=== PATIENT | male | born 1985 | race Hispanic/Latino ===

== ENCOUNTER 2021-02-27 12:34 | Emergency (ER) | payer MEDICAID ==
[~2021-02-27] VITALS: Ht 170.2 cm; Wt 118.4 kg
[2021-02-27] MEDS ORDERED: IBUPROFEN 800 MG TAB PO ONE (13:30)
[2021-02-27] MEDS ORDERED: 0.9%NACL 1000ML 1,000 ML IV ONE (13:30)
[2021-02-27] MEDS ORDERED: ACETAMINOPHEN 500 MG TABLET PO ONE (13:30)
[2021-02-27 13:40] LABS: APPEARANCE,URINE Clear (CLEAR); BILIRUBIN,URINE Negative (NEGATIVE); COLOR,URINE Yellow (YELLOW); GLUCOSE, URINE (UA) Negative (NEGATIVE); KETONES,URINE Negative (NEGATIVE); LEUKOCYTE ESTERASE ,URINE Negative (NEGATIVE); NITRATE,URINE Negative (NEGATIVE); OCCULT BLOOD,URINE Large (NEGATIVE); PROTEIN,URINE POS 2+ mg/dL (NEGATIVE); UROBILINOGEN,URINE 0.2 mg/dL (0.2-1.0)
[2021-02-27 13:51] VITALS: BP 155/99
[2021-02-27 13:51] LABS: BACTERIA,URINE Rare /HPF (None Seen); SQUAMOUS EPITHELIAL CELL,UR Rare /HPF (0-2); WBC,URINE 0-1 /HPF (0-1)
[2021-02-27 13:53] LABS: BASOPHILS % (AUTO) 0.5 % (0.0-5.0); EOSINOPHILS % (AUTO) 2.1 % (0.0-8.0); HEMATOCRIT 48.4 % (42-54); LYMPHOCYTES % (AUTO) 10.1 % (21.0-51.0); MEAN CORPUSCULAR HEMOGLOBIN 32.1 pg (27.0-33.0); MEAN CORPUSCULAR HGB CONC 34.5 g/dL (32.0-36.0); MEAN CORPUSCULAR VOLUME 92.9 fL (79-99); MONOCYTES % (AUTO) 11.6 % (3.0-13.0); NEUTROPHILS % (AUTO) 75.3 % (40.0-77.0); PLATELET COUNT (AUTO) 199 K/uL (130-400); RED BLOOD CELL COUNT(AUTO) 5.21 MIL/uL (4.50-6.20); RED CELL DISTRIBUTION WIDTH 12.3 % (11.0-15.5); WHITE BLOOD COUNT (AUTO) 7.8 K/uL (4.8-10.8)
[2021-02-27 14:12] LABS: ALBUMIN 4.2 g/dL (3.5-5.0); BILIRUBIN,TOTAL 0.6 mg/dL (0.2-1.0); CREATININE 0.8 mg/dL (0.5-1.5); CRP QUANTITATIVE 8.1 mg/L (0.00-9.0); TOTAL PROTEIN, SERUM 8.5 g/dL (6.0-8.3)
[2021-02-27] MEDS ORDERED: ACET-2247 PO (14:39)
[2021-02-27] MEDS ORDERED: IBUP-1552 PO (14:39)
== END 2021-02-27 15:02 | disposition home or self-care (01) ==
LOC: EDH 12:34
DX: U07.1 COVID-19 (principal); E86.0 Dehydration; I10 Essential (primary) hypertension; E66.9 Obesity, unspecified; Z68.41 Body mass index [BMI] 40.0-44.9, adult; Z79.1 Long term (current) use of non-steroidal anti-inflammatories (NSAID)
CPT/HCPCS: 36415; 71045; 80053; 81001; 85025; 86140; 87635; 87804 ×2; 96360; 99284; C9803; J7030

== ENCOUNTER 2024-06-26 20:47 | Inpatient (IN) | payer MEDICAID ==
[~2024-06-26] VITALS: Ht 167.6 cm; Wt 120.7 kg
[~2024-06-26 20:47] MED LIST: ACET-2247 PO; IBUP-1552 PO
--- NOTE | 2024-06-26 20:57 | ERN ---
General Chief Complaint: Multiple Complaints Stated Complaint: HIGH BP Time Seen by MD: 20:50 Time Seen by Midlevel: 20:55 Source: patient History of Present Illness Initial Comments The patient is a morbidly obese 38-year-old male with a past medical history of hypertension presenting to the emergency department for evaluation of flu-like symptoms that started earlier today. Son-in-law is sick with similar symptoms. On arrival with the patient was found febrile, tachycardic, and hypertensive. He does report a pressure-like feeling to the back of his head. He denies any vision changes, focal weakness, nausea, vomiting, or any other symptoms at this time. Patient does report having a history of hypertension and reports taking Cardizem 180 mg once a day. He does report taking the dose in the morning. Repeated the dose prior to arrival when he saw his blood pressure was over 200 systolic. Allergies: Coded Allergies: No Known Allergies (Unverified Allergy, Unknown, 02/27/21) Home Meds Active Scripts Acetaminophen (Tylenol) 325 Mg Tablet, 975 MG PO a4h, #100 TAB Prov:JAIME NAVARRETE 02/27/21 Ibuprofen (Ibu) 400 Mg Tablet, 800 MG PO TID, #60 TAB Prov:JAIME NAVARRETE 02/27/21 Past Medical History Past Medical History: Hypertension Medical History Other: Obesity Past Surgical History: None ROS Dictation CONSTITUTIONAL: Negative except for HPI HEAD/FACE: Negative except for HPI EENT: Negative except for HPI RESPIRATORY: Negative except for HPI GASTROINTESTINAL/ABDOMINAL: Negative except for HPI GENITOURINARY: Negative except for HPI MUSCULOSKELETAL: Negative except for HPI INTEGUMENTARY: Negative except for HPI NEUROLOGICAL/PSYCH: Negative except for HPI HEMATOLOGIC/LYMPHATIC: Negative except for HPI All Systems Negative, Except as noted above. 13 point review of systems assessed and all negative except for above. Physical Exam Physical Exam Dictation Vital Signs reviewed General Appearance: Alert, oriented x 3, morbidly obese, anxious appearing, diaphoretic, febrile Head and Face: non-traumatic. Eyes: PERRL, pink conjunctivas, eyelid no trauma, anterior chamber with arcus senilis. Ears: Pinnas intact and no signs of trauma or erythema ear canals clear and no discharge TM no erythema Nose: No discharge, no bleeding. Oropharynx: Mouth normal, tongue pink, pharynx clear,no erythema, tonsils no exudates, no abscesses noted, mucous membrane moist Neck: Supple, non-tender, no thyromegaly, no masses, no JVD, no bruits Breast:Deferred Chest:No tenderness, no crepitus, no paradoxical movement, no retractions Lungs:Clear, well-ventilated, symmetric, no rales, no wheezing, no rhonchi, no stridor, good breath sounds bilaterally Heart: Tachycardic, regular rhythm, no murmur, no gallops Vascular: no peripheral edema, Abdomen: Soft, positive bowel sounds, nondistended, no guarding, nontender, no rebound, no masses no hepatomegaly, no splenomegaly, no Eng's sign, no hernias. Rectal: Deferred Genital: Deferred Neurological: Normal speech, motor function intact, sensory function intact Musculoskeletal: Neck nontender, full range of motion, back nontender, full range of motion, Extremities: nontender, full range of motion Skin: Color pink, dry, no turgor, no rash, no lacerations, no abrasions, no contusions. Lymphatic: Deferred Results Laboratory and Microbiology Lab and Micro Result Laboratory Tests Test 06/26/24 20:56 06/26/24 20:59 06/26/24 21:19 06/26/24 21:42 White Blood Count 9.0 K/uL (4.8-10.8) Red Blood Count 5.00 MIL/uL (4.50-6.20) Hemoglobin 16.7 g/dL (14.0-18.0) Hematocrit 47.2 % (42-54) Mean Corpuscular Volume 94.4 fL (79-99) Mean Corpuscular Hemoglobin 33.4 pg (27.0-33.0) H Mean Corpuscular Hemoglobin Concent 35.4 g/dL (32.0-36.0) Red Cell Distribution Width 12.2 % (11.0-15.5) Platelet Count 232 K/uL (130-400) Mean Platelet Volume 11.3 fL (7.5-10.5) H Immature Granulocyte % (Auto) 0.6 % (0-1) Neutrophils (%) (Auto) 83.2 % (40.0-77.0) H Lymphocytes (%) (Auto) 5.4 % (21.0-51.0) L Monocytes (%) (Auto) 10.3 % (3.0-13.0) Eosinophils (%) (Auto) 0.1 % (0.0-8.0) Basophils (%) (Auto) 0.4 % (0.0-5.0) Neutrophils # (Auto) 7.5 K/uL (1.8-7.7) Lymphocytes # (Auto) 0.5 K/uL (1.0-4.8) L Monocytes # (Auto) 0.9 K/uL (0.1-1.0) Eosinophils # (Auto) 0.01 K/uL (0.00-0.70) Basophils # (Auto) 0.04 K/uL (0.00-0.20) Absolute Immature Granulocyte (auto 0.05 K/uL (0-1) Nucleated Red Blood Cells 0.0 % (0.0-0.19) White Cell Morphology Comment See comments Sodium Level 138 mmol/L (136-145) Potassium Level 3.9 mmol/L (3.5-5.1) Chloride Level 101 mmol/L (101-111) Carbon Dioxide Level 29 mmol/L (21-32) Blood Urea Nitrogen 8 mg/dL (7-18) Creatinine 1.0 mg/dL (0.5-1.3) Glomerular Filtration Rate Calc 99 mL/min (>90) Random Glucose 194 mg/dL (70-105) H Lactic Acid Level 3.0 mmol/L (0.8-2.5) H Total Calcium 9.2 mg/dL (8.5-10.1) Total Creatine Kinase 183 U/L (21-232) Troponin I High Sensitivity 18.5 ng/L (4-75) B-Type Natriuretic Peptide 49 pg/mL (0-100) Procalcitonin 0.05 ng/mL (0.05-0.5) Influenza Type A Antigen Negative For Type A Influenza Type B Antigen Negative For Type B SARS-CoV-2 Antigen (Rapid) PRESUMPTIVE NEGATIVE Group A Streptococcus Rapid negative (NEGATIVE) Urine Color LIGHT-YELLOW (YELLOW) Urine Appearance CLEAR (CLEAR) Urine pH 7.0 (5.0-8.0) Urine Specific [place] 1.008 (1.001-1.031) Urine Protein 200 mg/dL (NEGATIVE) H Urine Glucose (UA) NEGATIVE mg/dL (NEGATIVE) Urine Ketones NEGATIVE mg/dL (NEGATIVE) Urine Occult Blood LARGE (NEGATIVE) H Urine Nitrate NEGATIVE (NEGATIVE) Urine Bilirubin NEGATIVE mg/dL (NEGATIVE) Urine Urobilinogen 0.2 mg/dL (0.2-1.0) Urine Leukocyte Esterase NEGATIVE [place]/uL Urine RBC 51-100 /HPF (0-1) H Urine WBC 2-5 /HPF (0-1) H Urine Other Crystals (Auto) 3 /HPF (None Seen) Urine Bacteria None /HPF (None Seen) Ammonia 21 umol/L (11-32) Test 06/26/24 22:28 Blood Gas Specimen Type Arterial Arterial Blood pH 7.471 (7.350-7.450) Arterial Blood Partial Pressure CO2 31 mmHg (35-48) L Arterial Blood Partial Pressure O2 74.7 mmHg (83.0-108.0) L Arterial Blood HCO3 22.3 mmol/L (21.0-28.0) Arterial Blood Oxygen Saturation 95.9 % (94.0-98.0) Arterial Blood Base Excess -0.3 mmol/L (-2.0-3.0) Blood Gas Temperature 37.0 CELSIUS (35.5-37.0) Blood Gas Flow-by 2.00 L/min (0.00-15.00) Blood Gas Vent Mode 2LNC (ROOM AIR) FiO2 28.0 % Blood Gas Specimen Comment RR RN REASON: abnormal x ray ORDERING PHYSICIAN: LINA MACDONALD PROCEDURE: CHEST W - CT CHEST W/CONTRAST CT CHEST W/CONTRAST HISTORY: Abnormal x-ray COMPARISON: None TECHNIQUE: Multiple sequential axial images of the chest were obtained from the thoracic inlet through upper abdomen. Patient was given 50 cc of Omnipaque through intravenous route. FINDINGS: Mild bilateral pulmonary infiltrates are seen with interstitial fibrosis No pleural effusion or pericardial effusion is seen. There is no evidence of pneumothorax. There are normal size mediastinal and hilar lymph nodes. The heart is not enlarged. Degenerative changes of the thoracolumbar spine are present. There is no evidence of adrenal nodule. IMPRESSION: 1. Bilateral pulmonary infiltrates with interstitial fibrosis. CT was performed with one or more following dose reduction techniques: automated exposure control, adjustment of the mA and kv according to patient's size, or use of a iterative reconstruction technique. REASON: hypertensive urgency ORDERING PHYSICIAN: LINA MACDONALD PROCEDURE: HEAD WO - CT HEAD/BRAIN W/O CONTRAST CT HEAD/BRAIN W/O CONTRAST HISTORY: Hypertensive urgency COMPARISON: None TECHNIQUE: Multiple sequential axial images of the head were obtained from the base of the skull through vertex. Patient was not given contrast through intravenous route. FINDINGS: The ventricles and extraventricular CSF spaces are dilated consistent with cerebral atrophy. Nonspecific white matter changes seen. There is no midline shift, mass effect or herniation. No acute intracranial bleed is seen. Visualized portion of the paranasal sinuses are grossly within normal limits. There are bilateral choroid plexus calcifications. IMPRESSION: 1. No acute intracranial bleed is seen. CT was performed with one or more following dose reduction techniques: automated exposure control, adjustment of the mA and kv according to patient's size, or use of a iterative reconstruction technique. REASON: palpitations ORDERING PHYSICIAN: LINA MACDONALD PROCEDURE: CXR1VW - CHEST 1VW CHEST 1VW HISTORY: Palpitation COMPARISON: 02/27/2021 FINDINGS: A frontal projection of the chest was obtained. Mild bilateral pulmonary infiltrates are seen may be related to mild pulmonary vascular congestion with possible superimposed pneumonitis. The heart is borderline enlarged. Degenerative changes are seen. No evidence of aortic calcification is seen. IMPRESSION: 1. Mild bilateral pulmonary infiltrates are seen may be related to mild pulmonary vascular congestion with possible superimposed pneumonitis. Labs Reviewed?: Yes MDM MDM: The patient is a 38-year-old male with a history of hypertension on Car dizem who reports to the emergency department with complaints of occipital headache and elevated blood pressure. Patient also reported upper respiratory symptoms. Reports family at home sick with similar symptoms. Denies any chest pain or shortness of breath, denies any abdominal pain, nausea or vomiting. On arrival to ER patient was febrile and tachycardic. Hypoxic on room air. CBC showed no leukocytosis, no anemia, chemistry showed no electrolyte imbalance, lactic acid of 3.0, negative troponin, negative procalcitonin, urinalysis with no leukocyte esterase or nitrites. Serology negative. Blood gas revealed a O2 of 74. Patient placed on oxygen. CT head unremarkable. CT chest showed infiltrates. Patient will be admitted for further evaluation and treatment. Differential diagnosis: Pneumonia, sepsis, upper respiratory infection, dehydration Comorbidities: Hypertension Tests considered and not ordered secondary to shared decision making include: none Previous outside records reviewed: none Risk of complication and/or morbidity or mortality of patient management: The patient meets criteria for admission. Need for emergency major/minor surgery: No There are no social concerns with this patient. I independently interpreted the tests I ordered (labs, urinalysis, etc.). I discussed the case with the hospitalist for admission. Hector BROWN who accepts admission I discussed the case with the following specialists: none. Historian: pateint. I independently interpreted imaging studies and EKGs that I ordered (US, CT, XR, EKG, etc.). External chart review: none. Medical management and examination interpretation discussions were had by me with other qualified healthcare professionals as indicated for the patient's care. ED Course Orders Procedure Category Date Status Time Iv Insertion CPOE 06/26/24 Transmitted 20:51 Pulse Ox(Continuous) RT 06/26/24 Transmitted 20:51 Vital Signs Per CPOE 06/26/24 Transmitted Routine 20:51 12 Lead Ekg Tracing- EKG 06/26/24 Complete Technical 20:51 Cbc With Differential LAB 06/26/24 Complete 20:51 Blood Cult MAHSA 06/26/24 In Process 20:51 Urinalysis Profile LAB 06/26/24 Complete 20:51 Culture Urine MAHSA 06/26/24 In Process 20:51 Lactic Acid LAB 06/26/24 Complete 20:51 Basic Metabolic Panel LAB 06/26/24 Complete 20:51 Covid19 (Sars Antigen LAB 06/26/24 Complete Rapid) 20:51 Influenza Type A & B, LAB 06/26/24 Complete Rapid 20:51 Rapid (Group A Strep) LAB 06/26/24 Complete 20:51 Chest 1vw RAD 06/26/24 Resulted 20:54 Acetaminophen 500mg PHA 06/26/24 Complete Tab (Tylenol 500mg T 21:00 0.9%Nacl 1000ml (Ns PHA 06/26/24 Complete 1000ml) 21:00 Cardiac Panel LAB 06/26/24 Complete 20:56 Ipratropium 0.5 PHA 06/26/24 Complete Mg/2.5 Ml Inh 22:00 Ammonia LAB 06/26/24 Complete 21:33 Ct Head/Brain W/O CT 06/26/24 Resulted Contrast 21:33 Arterial Blood Gas RT 06/26/24 Transmitted 21:33 Ceftriaxone 2gm Vial PHA 06/26/24 Complete (Rocephin 2gm Inj) 22:00 Methylprednisolone PHA 06/26/24 Complete Succ 125mg (Solu-Medr 22:00 Ct Chest W/Contrast CT 06/26/24 Resulted 21:48 Iohexol (Omnipaque) PHA 06/26/24 Complete 21:55 Azithromycin 500mg+Ns PHA 06/26/24 In Process 250ml (Azithromyci 22:00 Arterial Blood Gas LAB 06/26/24 Complete 22:28 B-Type Natriuretic LAB 06/26/24 Complete Peptide 23:12 Admit Orders ADM 06/26/24 Transmitted 23:13 Consistent Carb DIET 06/27/24 Transmitted Breakfast Basic Metabolic Panel LAB 06/27/24 In Process 04:00 Cbc With Differential LAB 06/27/24 In Process 04:00 Magnesium LAB 06/27/24 In Process 04:00 Phosphorus LAB 06/27/24 In Process 04:00 Urinalysis Profile LAB 06/26/24 In Process 23:13 Procalcitonin LAB 06/26/24 Complete 23:13 Lactic Acid LAB 06/27/24 In Process 04:00 Activity: Ad Andra CPOE 06/26/24 Transmitted 23:13 Apply Knee High Teds CPOE 06/26/24 Transmitted 23:13 Apply Scds CPOE 06/26/24 Transmitted 23:13 Condition: CPOE 06/26/24 Transmitted 23:13 Oxygen By Nc/Pulse Ox CPOE 06/26/24 Transmitted 23:13 Telemetry Monitoring CPOE 06/26/24 Transmitted 23:13 Vital Signs(Adult CPOE 06/26/24 Transmitted Hospitalist) 23:13 Nurse To Enter Home CPOE 06/26/24 Transmitted Medication 23:13 Lactated Ringers PHA 06/26/24 In Process 1000ml (Lactated 23:30 Acetaminophen 325 Tab PHA 06/26/24 In Process (Tylenol 325mg Tab 23:30 Enoxaparin Sodium 40 PHA 06/27/24 In Process Mg/0.4 Ml (Lovenox) 09:00 Famotidine 20mg Tab PHA 06/27/24 In Process (Pepcid 20mg Tab) 09:00 Hydralazine 20mg Inj PHA 06/26/24 In Process (Apresoline 20mg In 23:30 Morphine 4mg Syg PHA 06/26/24 In Process (Morphine 4mg Syg) 23:30 Ondansetron 4mg Inj PHA 06/26/24 In Process (Zofran 4mg Inj) 23:30 Lactated Ringers PHA 06/26/24 In Process 1000ml (Lactated 23:30 Respiratory Cult MAHSA 06/26/24 Logged W/Gram Stain 23:19 Ipratropium/Albuterol PHA 06/27/24 In Process Neb (Duoneb) 00:00 Guaifenesin Sug-Ag PHA 06/26/24 In Process 100 Mg/5ml (Robituss 23:30 Zosyn 3.375gm+Ns 50ml PHA 06/27/24 In Process (Zosyn 3.375gm+Ns 05:00 Sodium Chloride 3% PHA 06/26/24 Complete Inh (Sodium Chloride 23:32 Home Cpap/Settings CPOE 06/26/24 Transmitted 23:56 Current Medications Medications (Trade) Dose Ordered Sig/Jocelynn Route PRN Reason Start Time Stop Time Status Last Admin Dose Admin Acetaminophen (TYLenol 325MG TAB) 650 mg Q6H PRN PO TEMPERATURE GREATER THAN 101.5 06/26/24 23:30 07/26/24 23:29 Acetaminophen (TYLenol 500MG TAB) 1,000 mg ONCE ONCE PO 06/26/24 21:00 06/26/24 21:01 DC 06/26/24 21:26 Albuterol (DUOneb) 1 UDVIAL [id number] IH 06/27/24 00:00 07/27/24 00:00 06/26/24 23:36 Azithromycin 250 ml @ 250 mls/hr Q24H IVPB 06/26/24 22:00 07/06/24 21:59 06/26/24 22:11 Ceftriaxone Sodium (Rocephin 2gm Inj) 2 gm ONCE ONCE IVPB 06/26/24 22:00 06/26/24 22:01 DC 06/26/24 21:39 Enoxaparin Sodium (Lovenox) 40 mg DAILY SQ 06/27/24 09:00 07/27/24 08:59 Famotidine (Pepcid 20mg Tab) 20 mg DAILY PO 06/27/24 09:00 07/27/24 08:59 Guaifenesin (RobiTUSSin SUGAR-FREE 100 MG/ 5 ML UDCUP) 400 mg Q4H PRN PO cough 06/26/24 23:30 07/26/24 23:29 Hydralazine HCl (APRESOLine 20MG INJ) 10 mg Q6H PRN IV For:SBP above 160;DBP above 90 06/26/24 23:30 07/26/24 23:29 Iohexol (Omnipaque) 50 ml STK-MED ONCE IV 06/26/24 21:55 06/26/24 21:55 DC Ipratropium [place] (AtrovENT UD) 0.5 MG ONCE ONCE IH 06/26/24 22:00 06/26/24 22:01 DC 06/26/24 22:33 Lactated Ringer's 1,000 ml @ 125 mls/hr Q8H IV 06/26/24 23:30 07/26/24 23:29 Lactated Ringer's 3,129 ml @ 1,043 mls/hr ONCE ONCE IV 06/26/24 23:30 06/27/24 02:29 Methylprednisolone Sodium Succinate (Solu-medROL 125MG) 125 mg ONCE ONCE IVP 06/26/24 22:00 06/26/24 22:01 DC 06/26/24 22:11 Morphine Sulfate (morPHINE 4MG SYG) 4 mg Q4H PRN IVP SEVERE PAIN (7-10) 06/26/24 23:30 07/03/24 23:29 Ondansetron HCl (zoFRAN 4MG INJ) 4 mg Q6H PRN IV NAUSEA/VOMITING 06/26/24 23:30 07/26/24 23:29 Piperacillin Sod/ Tazobactam Sod (Zosyn 3.375gm+NS 50ml) 3.375 gm Q8H IV 06/27/24 05:00 07/07/24 04:59 Sodium Chloride 1,000 ml @ 0 mls/hr ONCE ONCE IV 06/26/24 21:00 06/26/24 21:01 DC 06/26/24 21:26 Sodium Chloride (Sodium Chloride 3% Inh) 4 ml STK-MED ONCE IH 06/26/24 23:32 06/26/24 23:33 DC 06/26/24 23:36 Vital Signs Date Time Temp Pulse Resp B/P (MAP) Pulse Ox O2 Delivery O2 Flow Rate FiO2 06/26/24 23:43 115 20 06/26/24 23:19 100.9 117 20 165/105 94 Nasal Cannula* 3 32 06/26/24 22:37 117 20 170/104 95 Nasal Cannula* 3 32 06/26/24 22:35 121 06/26/24 22:31 121 18 Nasal Cannula 2.0 28 06/26/24 21:46 95 Nasal Cannula* 2 28 06/26/24 21:43 120 20 175/106 92 Room Air* 0 21 06/26/24 21:26 102.7 06/26/24 20:49 102.7 132 20 191/119 95 Room Air DX & DISP Disposition: Inpatient Decision to Admit Date: June 26, 2024 Decision to Admit Time: 23:13 Departure Impression: Primary Impression: Pneumonia Additional Impressions: Sepsis, Elevated lactic acid level Condition: Stable Referrals: HILARIO SCHWARZ MD (PCP) I have reviewed the case, and I agree with, Diagnosis and Plan LINA MACDONALD June 26, 2024 20:57 HAKAN KELLEY June 27, 2024 00:11
--- NOTE | 2024-06-26 20:59 | EKG ---
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
[2024-06-26 21:04] LABS: BASOPHILS # (AUTO) 0.04 K/uL (0.00-0.20); BASOPHILS % (AUTO) 0.4 % (0.0-5.0); EOSINOPHILS # (AUTO) 0.01 K/uL (0.00-0.70); EOSINOPHILS % (AUTO) 0.1 % (0.0-8.0); HEMATOCRIT 47.2 % (42-54); IMMATURE GRANULOCYTE ABSOLUTE 0.05 K/uL (0-1); LYMPHOCYTES # (AUTO) 0.5 K/uL (1.0-4.8); LYMPHOCYTES % (AUTO) 5.4 % (21.0-51.0); MEAN CORPUSCULAR HEMOGLOBIN 33.4 pg (27.0-33.0); MEAN CORPUSCULAR HGB CONC 35.4 g/dL (32.0-36.0); MEAN CORPUSCULAR VOLUME 94.4 fL (79-99); MONOCYTES # (AUTO) 0.9 K/uL (0.1-1.0); MONOCYTES % (AUTO) 10.3 % (3.0-13.0); NEUTROPHILS # (AUTO) 7.5 K/uL (1.8-7.7); NEUTROPHILS % (AUTO) 83.2 % (40.0-77.0); PLATELET COUNT (AUTO) 232 K/uL (130-400); RED CELL DISTRIBUTION WIDTH 12.2 % (11.0-15.5)
[2024-06-26 21:17] LABS: RAPID GROUP A STREP negative (NEGATIVE)
[2024-06-26 21:18] LABS: POTASSIUM 3.9 mmol/L (3.5-5.1)
[2024-06-26] MEDS: 0.9%NACL 1000ML 1,000 ML IV ONE (21:26)
[2024-06-26] MEDS: acetaMINOPHEN 500 MG TABLET PO ONE (21:26)
[2024-06-26 21:27] LABS: COVID19 (SARS ANTIGEN RAPID) PRESUMPTIVE NEGATIVE (NEGATIVE); INFLUENZA TYPE A Negative For Type A (NEGATIVE); INFLUENZA TYPE B Negative For Type B (NEGATIVE)
[2024-06-26 21:31] LABS: APPEARANCE,URINE CLEAR (CLEAR); BILIRUBIN,URINE NEGATIVE (NEGATIVE); COLOR,URINE LIGHT-YELLOW (YELLOW); GLUCOSE, URINE (UA) NEGATIVE (NEGATIVE); KETONES,URINE NEGATIVE (NEGATIVE); LEUKOCYTE ESTERASE ,URINE NEGATIVE Leu/uL (NEGATIVE); NITRATE,URINE NEGATIVE (NEGATIVE); OCCULT BLOOD,URINE LARGE (NEGATIVE); PROTEIN,URINE 200 mg/dL (NEGATIVE); UROBILINOGEN,URINE 0.2 mg/dL (0.2-1.0)
[2024-06-26 21:33] LABS: ADD UA MICROSCOPIC YES
[2024-06-26 21:34] LABS: MUCUS,URINE RARE LPF (None Seen); RBC,URINE 51-100 /HPF (0-1); UNCLASSIFIED CRYSTAL 3 /HPF (None Seen)
[2024-06-26] MEDS: CEFTRIAXONE 2GM VIAL IVPB ONE (21:39)
[2024-06-26] MEDS ORDERED: IOHEXOL-350 50ML VIAL IV ONE (21:55)
[2024-06-26] MEDS: Solu-medROL 125MG VIAL IVP ONE (22:11)
[2024-06-26] MEDS: AZITHROMYCIN 500MG+NS 250ML 250 ML IVPB SCH (22:11)
--- NOTE | 2024-06-26 22:13 | HMCIMG ---
CT HEAD/BRAIN W/O CONTRAST HISTORY: Hypertensive urgency COMPARISON: None TECHNIQUE: Multiple sequential axial images of the head were obtained from the base of the skull through vertex. Patient was not given contrast through intravenous route. FINDINGS: The ventricles and extraventricular CSF spaces are dilated consistent with cerebral atrophy. Nonspecific white matter changes seen. There is no midline shift, mass effect or herniation. No acute intracranial bleed is seen. Visualized portion of the paranasal sinuses are grossly within normal limits. There are bilateral choroid plexus calcifications. IMPRESSION: 1. No acute intracranial bleed is seen. CT was performed with one or more following dose reduction techniques: automated exposure control, adjustment of the mA and kv according to patient's size, or use of a iterative reconstruction technique.
--- NOTE | 2024-06-26 22:17 | HMCIMG ---
CHEST 1VW HISTORY: Palpitation COMPARISON: 02/27/2021 FINDINGS: A frontal projection of the chest was obtained. Mild bilateral pulmonary infiltrates are seen may be related to mild pulmonary vascular congestion with possible superimposed pneumonitis. The heart is borderline enlarged. Degenerative changes are seen. No evidence of aortic calcification is seen. IMPRESSION: 1. Mild bilateral pulmonary infiltrates are seen may be related to mild pulmonary vascular congestion with possible superimposed pneumonitis.
--- NOTE | 2024-06-26 22:23 | HMCIMG ---
CT CHEST W/CONTRAST HISTORY: Abnormal x-ray COMPARISON: None TECHNIQUE: Multiple sequential axial images of the chest were obtained from the thoracic inlet through upper abdomen. Patient was given 50 cc of Omnipaque through intravenous route. FINDINGS: Mild bilateral pulmonary infiltrates are seen with interstitial fibrosis No pleural effusion or pericardial effusion is seen. There is no evidence of pneumothorax. There are normal size mediastinal and hilar lymph nodes. The heart is not enlarged. Degenerative changes of the thoracolumbar spine are present. There is no evidence of adrenal nodule. IMPRESSION: 1. Bilateral pulmonary infiltrates with interstitial fibrosis. CT was performed with one or more following dose reduction techniques: automated exposure control, adjustment of the mA and kv according to patient's size, or use of a iterative reconstruction technique.
[2024-06-26 22:29] LABS: ABG BASE EXCESS -0.3 mmol/L (-2.0-3.0); ABG HCO3 22.3 mmol/L (21.0-28.0); ABG OXYGEN SATURATION 95.9 % (94.0-98.0); ABG PCO2 31 mmHg (35-48); ABG PH 7.471 (7.350-7.450); DEVICE COMMENT RR RN; PO2, ARTERIAL BG 74.7 mmHg (83.0-108.0); VENT MODE, BG 2LNC (ROOM AIR)
[2024-06-26 22:31] VITALS: PULSE 121; RESP 18; O2SAT 95
[2024-06-26] MEDS: IpraTROPium 0.5 MG/2.5 ML INH IH ONE (22:33)
[2024-06-26 22:35] VITALS: PULSE 121
[2024-06-26 23:18] VITALS: TEMP 100.9
--- NOTE | 2024-06-26 23:21 | HP ---
History of Present Illness Reason for Visit: hammond History of Present Illness Mr. Dangelo is a 38-year-old male that was seen and examined today on 06/26/2024. Patient is a good historian of personal health Patient states he came to the emergency department with a chief complaint of headache. Onset was today at 9:00 a.m.. Location is occipital. Duration is on and off. Character is described as a dull ache. There was no alleviating factors. There was no aggravating factors. Patient reports associated chills. Today in the emergency department COVID screen is negative, flu is negative, rapid strep antigen testing is negative, CBC is unremarkable, lactic acid is 3.0, urinalysis positive for protein and RBCs 51-100 per high-powered microscopy field, chest x-ray and CT of chest does show bilateral interstitial infiltrates. CT of the head is unremarkable. Emergency room physician recommended that patient be admitted with a diagnosis of pneumonia. Additionally patient had a temperature of 102.7�, heart rate 120, identified source of infection being lungs and lactic acid of 3.0 meeting clinical sepsis criteria. Past Medical History ADDITIONAL PAST MEDICAL HISTORY: [Hypertension, hyperlipidemia] SOCIAL HISTORY: [Negative for smoking, alcohol use, drug use patient lives with the father Frank Dangelo. Patient has good access to health care through his insurance. Patient denies difficulty pain is bills. Patient is unemployed. Patient is typically independent of all his ADLs] SURGICAL HISTORY: [Testicular surgery] Review of Systems General: No Fever; Chills; No Night Sweats, No Fatigue, No Malaise, No Appetite, No Other HEENT: No Head Aches, No Visual Changes, No Eye Pain, No Ear Pain, No Dysphasia, No Sinus Congestion, No Post Nasal Drip, No Sore Throat, No Other Pulmonary: No Dyspnea, No Cough, No Pleuritic Chest Pain, No Other Cardiovascular: No: Chest Pain, Palpitations, Orthopnea, Paroxysmal Noc. Dyspnea, Edema, Lt Headedness, Other Gastrointestinal: No: Nausea, Vomiting, Abdominal Pain, Diarrhea, Constipation, Melena, Hematochezia, Other Genitourinary: No Dysuria, No Frequency, No Incontinence, No Hematuria, No Retention, No Other Musculoskeletal: No: other, neck pain, shoulder pain, arm pain, back pain, hand pain, leg pain, foot pain Skin: No Urticaria, No Rash, No Other Neurological: Other (Headache); No: Weakness, Numbness, Incoordination, Change in speech, Confusion, Seizures Allergies: Coded Allergies: No Known Allergies (Unverified Allergy, Unknown, 02/27/21) Scheduled Acetaminophen (Tylenol), 975 MG PO a4h Diltiazem HCl (Diltiazem 24Hr Cd), 1 CAP PO DAILY, (Reported) Ibuprofen (Ibu), 800 MG PO TID Exam Vital Signs Vital Signs Date Time Temp Pulse Resp B/P (MAP) Pulse Ox O2 Delivery O2 Flow Rate FiO2 06/26/24 23:19 100.9 117 20 165/105 94 Nasal Cannula* 3 32 General Appearance: Alert, Oriented X3, Cooperative, mild distress HEENT: Atraumatic, EOMI Respiratory: Other (Bilateral rhonchi) Cardiovascular: Regular rate, Regular rhythm, Normal S1, Normal S2 Abdominal: Normal bowel sounds, Soft, No tenderness, No hepatospenomegaly Extremities: No edema Skin: No significant lesion Neuro: Normal speech, Strength at 5/5 X4 ext, Sensation intact, Cranial nerves 3-12 NL Psych/Mental Status: Mental status NL, Mood NL, Thoughts/Content NL Assessment/Plan ASSESSMENT: [ Sepsis, POA Pneumonia, POA Proteinuria, POA Hyperlactatemia, POA] PLAN: [ Admit patient to medical floor as inpatient status. Place patient on telemetry monitoring. Empiric antibiotic therapy with Zosyn. Fluid resuscitation with lactated Ringer's 30 mL/kg Check procalcitonin, follow up with the results Repeat lactic acid in a.m. Check blood culture, follow up with the results Check respiratory culture, follow up with the results DuoNebs every 6 hours. Supportive treatment with guaifenesin, Tylenol IV fluid maintenance therapy lactated Ringer's at 125 mL/HR GI prophylaxis, famotidine DVT prophylaxis, Lovenox ADVANCED CARE PLANNING 1. Which of the following were discussed? Hospice Care - Yes Therapeutic options - Yes Advance Directives - Yes - patient states he does not have any advance directives in place at this time, however his father can make decisions for him if he becomes unable Other discussions - patient wishes to remain a full code at this time 2. Discussed with who? Patient 3. Voluntary nature of this service was explained to the patient? Yes 4. Amount of time spent - ___16 minutes ____ 5. Reviewed by Physician? (if this service was performed by NPP) Yes This document was generated in part using voice recognition software, occasional wrong word or sound alike substitutions may have occurred due to the inherent limitations of voice recognition software. Read the chart carefully and recog nize using context, where the substitutions have occurred. Although every effort was made to edit the content, postmaster relief and typing errors may occur ADDENDUM: ATTENDING PHYSICIAN ATTESTATION: I have reviewed the midlevel's plan. I have independently seen, reviewed the chart and made my own assessment of the patient. See my addendum for updates to the midlevel's medical plan MD JOANNE Snow [facility] June 26, 2024 23:21 TANYA GREEN MD June 28, 2024 19:37
[2024-06-26] MEDS ORDERED: morPHINE 4 MG SYG IVP PRN (23:30)
[2024-06-26] MEDS ORDERED: ondanSETRON 4MG INJ IV PRN (23:30)
[2024-06-26] MEDS ORDERED: guaiFENesin SUGAR-FREE 100 MG/5 ML UDCUP PO PRN (23:30)
[2024-06-26] MEDS: SODIUM CHLORIDE 3% FOR INHALATION 4 ML/AMP VIAL.NEB IH ONE (23:36)
[2024-06-26] MEDS: IpraTROPium/alBUTERol SULFATE 3 ML SOLUTION IH SCH (23:36)
[2024-06-26 23:43] VITALS: PULSE 115; RESP 20
[2024-06-27] VITALS (18 sets, daily range): BP systolic 160–187; BP diastolic 81–110; PULSE 68–124; RESP 17–30; TEMP 97–100; O2SAT 91–100
[2024-06-27] MEDS: LACTATED RINGERS IV ONE (00:23)
[2024-06-27] MEDS: hydrALAZine 20MG/ML VIAL IV PRN (00:55)
[2024-06-27] MEDS ORDERED: DILT180C88 PO (01:01)
[2024-06-27] MEDS: LACTATED RINGERS 1000ML 1,000 ML IV SCH (03:46)
[2024-06-27] MEDS: ZOSYN 3.375GM +NS 50ML IV SCH (04:21)
[2024-06-27 05:20] LABS: BASOPHILS # (AUTO) 0.02 K/uL (0.00-0.20); BASOPHILS % (AUTO) 0.3 % (0.0-5.0); IMMATURE GRANULOCYTE ABSOLUTE 0.04 K/uL (0-1); LYMPHOCYTES # (AUTO) 0.4 K/uL (1.0-4.8); MEAN CORPUSCULAR HEMOGLOBIN 32.4 pg (27.0-33.0); MEAN CORPUSCULAR HGB CONC 34.6 g/dL (32.0-36.0); MEAN CORPUSCULAR VOLUME 93.9 fL (79-99); MONOCYTES # (AUTO) 0.1 K/uL (0.1-1.0); MONOCYTES % (AUTO) 1.6 % (3.0-13.0); NEUTROPHILS % (AUTO) 92.6 % (40.0-77.0); PLATELET COUNT (AUTO) 201 K/uL (130-400); RED CELL DISTRIBUTION WIDTH 12.5 % (11.0-15.5); WHITE BLOOD COUNT (AUTO) 7.5 K/uL (4.8-10.8)
[2024-06-27 05:43] LABS: MAGNESIUM 1.8 mg/dL (1.80-2.40); PHOSPHORUS 2.2 mg/dL (2.5-4.9); POTASSIUM 3.4 mmol/L (3.5-5.1)
[2024-06-27] MEDS: FAMOTIDINE 20MG TAB PO SCH (08:55)
[2024-06-27] MEDS: LoSARTan 50 MG TABLET PO SCH (08:55)
[2024-06-27] MEDS: dilTIAZem 180MG SR CAP PO SCH (08:55)
[2024-06-27] MEDS: ENOXAPARIN SODIUM 40 MG/0.4 ML SYRINGE SQ SCH (08:58)
[2024-06-27] MEDS: SODIUM CHLORIDE 3% FOR INHALATION 4 ML/AMP VIAL.NEB IH ONE (10:51)
[2024-06-27] MEDS: acetaMINOPHEN 325 MG TAB PO PRN (11:44)
[2024-06-27 11:57] LABS: HIV 1&2 ANTIBODY Non-Reactive (Negative); HIV-1 p24 Antigen Non-Reactive (Negative)
[2024-06-27] MEDS ORDERED: VANCOMYCIN PROTOCOL PER PHARMACY IV SCH (12:00)
[2024-06-27] MEDS: VANCOMYCIN 2GM/500 ML BAG 500 ML IV ONE (14:43)
--- NOTE | 2024-06-27 18:15 | PN ---
[facility] PROGRESS NOTE Date of Service: June 27, 2024 Time of Service: 17:59 SUBJECTIVE: 5/3 seen at bedside, no acute events overnight. Last fever was yesterday with a T-max of a 102.7�, he continues to be tachycardic heart rate ranging from 102 up to 115, he has been hypertensive, losartan and nifedipine have been started. Potassium mildly low at 3.4, creatinine kinase increased to 451, last lactic acid was 3.3 up from 2.2, we will repeat lactic acid at 6:00 p.m.. Culture still pending, we will follow up. We will order Radha typhus panel, start vanc and doxycycline. Chest CT does not show any infiltrates, at bedside patient reports improvement in his headache and neck pain. He was able to move his neck independently without any major neck stiffness, meningitis not likely however if symptoms do not improve and began to worsen we will consider LP REVIEW OF SYSTEMS 12 point review of systems negative unless noted in HPI PHYSICAL EXAM GENERAL APPEARANCE: The patient is awake, alert, and oriented, in no acute cardiopulmonary distress. NEUROLOGICAL: Cranial nerves II-XII grossly intact. Motor is 5/5 in bilateral upper and lower extremities proximal to distal. No sensory deficits. HEENT: Face is symmetric. Pupils are equal and reactive. Extraocular movements are intact. NECK: Supple. No JVD. No thyromegaly. No submental, submandibular, pre- /postauricular, occipital or supraclavicular lymphadenopathy. CHEST: Normal chest expansion. No Telemetry. LUNGS: Absence of any rales, rhonchi or any wheezing. CARDIOVASCULAR: Regular. S1 and S2 normal. No appreciable rubs, murmurs or gallops. ABDOMEN: Soft, nontender, and nondistended. There is no rebound, voluntary guarding, or rigidity. : Deferred. No Isbell. EXTREMITIES: Non-edematous and not cyanotic. No clubbing. Good capillary refill. SKIN: No skin breakdown. Vital Signs (last 8hr) Date Time Temp Pulse Resp B/P (MAP) Pulse Ox O2 Delivery O2 Flow Rate FiO2 06/27/24 16:00 98.4 108 19 165/94 97 Room Air 06/27/24 12:00 98.1 115 20 160/86 92 Room Air 06/27/24 11:20 102 18 06/27/24 11:14 18 N/A Room Air 21 LABS: Laboratory: Test 06/27/24 11:09 06/27/24 05:11 06/26/24 22:28 06/26/24 21:42 Range/Units Lactic Acid Level 3.3 H 0.8-2.5 mmol/L Total Creatine Kinase 451 #*H 21-232 U/L Procalcitonin < 0.05 L 0.05-0.5 ng/mL White Blood Count 7.5 4.8-10.8 K/uL Red Blood Count 4.90 4.50-6.20 MIL/uL Hemoglobin 15.9 14.0-18.0 g/dL Hematocrit 46.0 42-54 % Mean Corpuscular Volume 93.9 79-99 fL Mean Corpuscular Hemoglobin 32.4 27.0-33.0 pg Mean Corpuscular Hemoglobin Concent 34.6 32.0-36.0 g/dL Red Cell Distribution Width 12.5 11.0-15.5 % Platelet Count 201 130-400 K/uL Mean Platelet Volume 11.0 H 7.5-10.5 fL Immature Granulocyte % (Auto) 0.5 0-1 % Neutrophils (%) (Auto) 92.6 H 40.0-77.0 % Lymphocytes (%) (Auto) 5.0 L 21.0-51.0 % Monocytes (%) (Auto) 1.6 L 3.0-13.0 % Eosinophils (%) (Auto) 0.0 0.0-8.0 % Basophils (%) (Auto) 0.3 0.0-5.0 % Neutrophils # (Auto) 7.0 1.8-7.7 K/uL Lymphocytes # (Auto) 0.4 L 1.0-4.8 K/uL Monocytes # (Auto) 0.1 0.1-1.0 K/uL Eosinophils # (Auto) 0.00 0.00-0.70 K/uL Basophils # (Auto) 0.02 0.00-0.20 K/uL Absolute Immature Granulocyte (auto 0.04 0-1 K/uL Nucleated Red Blood Cells 0.0 0.0-0.19 % Sodium Level 137 136-145 mmol/L Potassium Level 3.4 L 3.5-5.1 mmol/L Chloride Level 103 101-111 mmol/L Carbon Dioxide Level 26 21-32 mmol/L Blood Urea Nitrogen 8 7-18 mg/dL Creatinine 1.0 0.5-1.3 mg/dL Glomerular Filtration Rate Calc 99 >90 mL/min Random Glucose 188 H 70-105 mg/dL Total Calcium 9.3 8.5-10.1 mg/dL Phosphorus Level 2.2 L 2.5-4.9 mg/dL Magnesium Level 1.80 1.80-2.40 mg/dL HIV (1&2) Antibody Non-Reactive Negative HIV P24 Antigen, Qualitative Non-Reactive Negative Blood Gas Specimen Type Arterial Arterial Blood pH 7.471 H 7.350-7.450 Arterial Blood Partial Pressure CO2 31 L 35-48 mmHg Arterial Blood Partial Pressure O2 74.7 L 83.0-108.0 mmHg Arterial Blood HCO3 22.3 21.0-28.0 mmol/L Arterial Blood Oxygen Saturation 95.9 94.0-98.0 % Arterial Blood Base Excess -0.3 -2.0-3.0 mmol/L Blood Gas Temperature 37.0 35.5-37.0 CELSIUS Blood Gas Flow-by 2.00 0.00-15.00 L/min Blood Gas Vent Mode 2LNC ROOM AIR FiO2 28.0 % Blood Gas Specimen Comment RR RN Ammonia 21 11-32 umol/L Test 06/26/24 21:19 06/26/24 20:59 06/26/24 20:56 Range/Units Urine Color LIGHT-YELLOW YELLOW Urine Appearance CLEAR CLEAR Urine pH 7.0 5.0-8.0 Urine Specific [place] 1.008 1.001-1.031 Urine Protein 200 H NEGATIVE mg/dL Urine Glucose (UA) NEGATIVE NEGATIVE mg/dL Urine Ketones NEGATIVE NEGATIVE mg/dL Urine Occult Blood LARGE H NEGATIVE Urine Nitrate NEGATIVE NEGATIVE Urine Bilirubin NEGATIVE NEGATIVE mg/dL Urine Urobilinogen 0.2 0.2-1.0 mg/dL Urine Leukocyte Esterase NEGATIVE NEGATIVE Nallely/uL Urine RBC 51-100 H 0-1 /HPF Urine WBC 2-5 H 0-1 /HPF Urine Other Crystals (Auto) 3 None Seen /HPF Urine Bacteria None None Seen /HPF Influenza Type A Antigen Negative For Type A NEGATIVE Influenza Type B Antigen Negative For Type B NEGATIVE SARS-CoV-2 Antigen (Rapid) PRESUMPTIVE NEGATIVE NEGATIVE Group A Streptococcus Rapid negative NEGATIVE White Cell Morphology Comment See comments Troponin I High Sensitivity 18.5 4-75 ng/L B-Type Natriuretic Peptide 49 0-100 pg/mL Current Medications Medications (Trade) Dose Ordered Sig/Jocelynn Route PRN Reason Start Time Stop Time Status Last Admin Dose Admin Acetaminophen (TYLenol 325MG TAB) 650 mg Q6H PRN PO TEMPERATURE GREATER THAN 101.5 06/26/24 23:30 07/26/24 23:29 06/27/24 11:44 650 MG Albuterol (DUOneb) 1 UDVIAL [id number] IH 06/27/24 00:00 07/27/24 00:00 06/27/24 11:17 1 UDVIAL Azithromycin 250 ml @ 250 mls/hr Q24H IVPB 06/26/24 22:00 06/27/24 08:15 DC 06/26/24 22:11 250 MLS/HR Diltiazem HCl (CARDIzem 180MG CD) 180 mg DAILY PO 06/27/24 09:00 07/27/24 08:59 06/27/24 08:55 180 MG Doxycycline Hyclate (Doxycycline Hyclate) 100 mg BID PO 06/27/24 21:00 07/07/24 20:59 Enoxaparin Sodium (Lovenox) 40 mg DAILY SQ 06/27/24 09:00 07/27/24 08:59 06/27/24 08:58 40 MG Famotidine (Pepcid 20mg Tab) 20 mg DAILY PO 06/27/24 09:00 07/27/24 08:59 06/27/24 08:55 20 MG Guaifenesin (RobiTUSSin SUGAR-FREE 100 MG/ 5 ML UDCUP) 400 mg Q4H PRN PO cough 06/26/24 23:30 07/26/24 23:29 Hydralazine HCl (APRESOLine 20MG INJ) 10 mg Q6H PRN IV For:SBP above 160;DBP above 90 06/26/24 23:30 07/26/24 23:29 06/27/24 00:55 10 MG Lactated Ringer's 1,000 ml @ 160 mls/hr Q6H15M IV 06/26/24 23:30 07/26/24 23:29 06/27/24 10:43 160 MLS/HR Losartan Potassium (CozAAR 50 mg TAB) 50 mg BID PO 06/27/24 09:00 07/27/24 08:59 06/27/24 08:55 50 MG Morphine Sulfate (morPHINE 4MG SYG) 4 mg Q4H PRN IVP SEVERE PAIN (7-10) 06/26/24 23:30 07/03/24 23:29 Ondansetron HCl (zoFRAN 4MG INJ) 4 mg Q6H PRN IV NAUSEA/VOMITING 06/26/24 23:30 07/26/24 23:29 Piperacillin Sod/ Tazobactam Sod (Zosyn 3.375gm+NS 50ml) 3.375 gm Q8H IV 06/27/24 05:00 07/07/24 04:59 06/27/24 14:43 3.375 GM Vancomycin HCl 250 ml @ 125 mls/hr Q12H IV 06/28/24 01:00 07/08/24 00:59 Vancomycin HCl (Vancomycin Protocol) 1 each AD IV 06/27/24 12:00 07/11/24 11:59 DIAGNOSTICS / RADIOLOGY: [ ] ASSESSMENT: Sepsis, POA Pneumonia, POA Proteinuria, POA Hypertension, POA Elevated lactic acid, POA PLAN: Continue Zosyn Start Vancomycin protocol Start doxycycline 100mg BID Continue LR @ 160 cc/hr Continue diltiazem 180mg q24h Continue lovenox Disposition: Pending improvement in clinical status TANYA GREEN MD June 27, 2024 18:15
--- NOTE | 2024-06-27 19:30 | NUR ---
DCP: INITIAL ASSESSMENT Patient lives with parents. He has no Home Health but has [facility] X 49 hours a week DME: BPM. Patient needs help with ADLs and doesn't drive. PCP is Dr. Evens Brooks. Pharmacy is [facility] in [place]. Patient voiced no safety concerns regarding returning home and states he has no difficulty with housing or buying food. DCP is home. Addendum: 06/27/24 at 1931 by TRACYE HIDALGO SS Amended: Links added.
[2024-06-27] MEDS: DOXYCYCLINE HYCLATE 100 MG TABLET PO SCH (20:02)
[2024-06-28] VITALS (18 sets, daily range): BP systolic 137–169; BP diastolic 95–111; PULSE 53–124; RESP 18–25; TEMP 97.7–99.3; O2SAT 93–96
[2024-06-28] MEDS: VANCOMYCIN 1.75 GM/250 ML BAG 250 ML IV SCH (01:30)
[2024-06-28 06:54] LABS: BASOPHILS # (AUTO) 0.02 K/uL (0.00-0.20); BASOPHILS % (AUTO) 0.2 % (0.0-5.0); EOSINOPHILS # (AUTO) 0.02 K/uL (0.00-0.70); EOSINOPHILS % (AUTO) 0.2 % (0.0-8.0); HEMATOCRIT 50.1 % (42-54); IMMATURE GRANULOCYTE ABSOLUTE 0.03 K/uL (0-1); LYMPHOCYTES % (AUTO) 20.2 % (21.0-51.0); MEAN CORPUSCULAR HEMOGLOBIN 32.8 pg (27.0-33.0); MEAN CORPUSCULAR HGB CONC 34.1 g/dL (32.0-36.0); MEAN CORPUSCULAR VOLUME 96.2 fL (79-99); MONOCYTES # (AUTO) 1.2 K/uL (0.1-1.0); MONOCYTES % (AUTO) 12.3 % (3.0-13.0); NEUTROPHILS # (AUTO) 6.5 K/uL (1.8-7.7); NEUTROPHILS % (AUTO) 66.8 % (40.0-77.0); PLATELET COUNT (AUTO) 213 K/uL (130-400); RED BLOOD CELL COUNT(AUTO) 5.21 MIL/uL (4.50-6.20); RED CELL DISTRIBUTION WIDTH 12.9 % (11.0-15.5); WHITE BLOOD COUNT (AUTO) 9.8 K/uL (4.8-10.8)
[2024-06-28 07:09] LABS: ALBUMIN 3.1 g/dL (3.5-5.0); BILIRUBIN,TOTAL 0.5 mg/dL (0.2-1.0); MAGNESIUM 1.9 mg/dL (1.80-2.40); PHOSPHORUS 4.2 mg/dL (2.5-4.9); POTASSIUM 3.7 mmol/L (3.5-5.1); TOTAL PROTEIN, SERUM 7.1 g/dL (6.0-8.3)
[2024-06-28] MEDS ORDERED: nifeDIPine ER 30 MG TAB PO SCH (10:00)
[2024-06-28] MEDS: hydroCHLOROthiazide 25 MG TABLET PO SCH (11:19)
[2024-06-28] MEDS: LACTATED RINGERS 1000ML IV ONE (17:50)
--- NOTE | 2024-06-28 19:41 | PN ---
[facility] PROGRESS NOTE Date of Service: June 28, 2024 Time of Service: 19:37 SUBJECTIVE: 5/ seen at bedside, no acute events overnight. Last fever was yesterday with a T-max of a 102.7�, he continues to be tachycardic heart rate ranging from 102 up to 115, he has been hypertensive, losartan and nifedipine have been started. Potassium mildly low at 3.4, creatinine kinase increased to 451, last lactic acid was 3.3 up from 2.2, we will repeat lactic acid at 6:00 p.m.. Culture still pending, we will follow up. We will order Radha typhus panel, start vanc and doxycycline. Chest CT does not show any infiltrates, at bedside patient reports improvement in his headache and neck pain. He was able to move his neck independently without any major neck stiffness, meningitis not likely however if symptoms do not improve and began to worsen we will consider LP 06/28 patient seen at bedside, no acute events overnight. Continues with episodes of tachycardia, current cultures are no growth to date, lactic acid peaked at 3.1 yesterday before trending back down to 1.8 today. Creatinine kinase was elevated at 451 we will order a repeat. There was no obvious cause for his fever and tachycardia which means it may be viral in nature or murine typhus. is panel is still pending, we will continue with doxycycline. REVIEW OF SYSTEMS 12 point review of systems negative unless noted in HPI PHYSICAL EXAM GENERAL APPEARANCE: The patient is awake, alert, and oriented, in no acute cardiopulmonary distress. NEUROLOGICAL: Cranial nerves II-XII grossly intact. Motor is 5/5 in bilateral upper and lower extremities proximal to distal. No sensory deficits. HEENT: Face is symmetric. Pupils are equal and reactive. Extraocular movements are intact. NECK: Supple. No JVD. No thyromegaly. No submental, submandibular, pre- /postauricular, occipital or supraclavicular lymphadenopathy. CHEST: Normal chest expansion. No Telemetry. LUNGS: Absence of any rales, rhonchi or any wheezing. CARDIOVASCULAR: Regular. S1 and S2 normal. No appreciable rubs, murmurs or gallops. ABDOMEN: Soft, nontender, and nondistended. There is no rebound, voluntary guarding, or rigidity. : Deferred. No Isbell. EXTREMITIES: Non-edematous and not cyanotic. No clubbing. Good capillary refill. SKIN: No skin breakdown. Vital Signs (last 8hr) Date Time Temp Pulse Resp B/P (MAP) Pulse Ox O2 Delivery O2 Flow Rate FiO2 06/28/24 18:59 98 18 N/A Room Air 21 06/28/24 18:58 99 18 06/28/24 16:11 99.3 124 19 151/98 92 Room Air 06/28/24 12:00 98.6 115 19 148/95 93 Room Air LABS: Laboratory: Test 06/28/24 06:47 06/27/24 22:34 06/27/24 11:09 06/27/24 05:11 Range/Units White Blood Count 9.8 4.8-10.8 K/uL Red Blood Count 5.21 4.50-6.20 MIL/uL Hemoglobin 17.1 14.0-18.0 g/dL Hematocrit 50.1 42-54 % Mean Corpuscular Volume 96.2 79-99 fL Mean Corpuscular Hemoglobin 32.8 27.0-33.0 pg Mean Corpuscular Hemoglobin Concent 34.1 32.0-36.0 g/dL Red Cell Distribution Width 12.9 11.0-15.5 % Platelet Count 213 130-400 K/uL Mean Platelet Volume 11.0 H 7.5-10.5 fL Immature Granulocyte % (Auto) 0.3 0-1 % Neutrophils (%) (Auto) 66.8 40.0-77.0 % Lymphocytes (%) (Auto) 20.2 L 21.0-51.0 % Monocytes (%) (Auto) 12.3 3.0-13.0 % Eosinophils (%) (Auto) 0.2 0.0-8.0 % Basophils (%) (Auto) 0.2 0.0-5.0 % Neutrophils # (Auto) 6.5 1.8-7.7 K/uL Lymphocytes # (Auto) 2.0 1.0-4.8 K/uL Monocytes # (Auto) 1.2 H 0.1-1.0 K/uL Eosinophils # (Auto) 0.02 0.00-0.70 K/uL Basophils # (Auto) 0.02 0.00-0.20 K/uL Absolute Immature Granulocyte (auto 0.03 0-1 K/uL Nucleated Red Blood Cells 0.0 0.0-0.19 % Sodium Level 140 136-145 mmol/L Potassium Level 3.7 3.5-5.1 mmol/L Chloride Level 106 101-111 mmol/L Carbon Dioxide Level 29 21-32 mmol/L Blood Urea Nitrogen 12 7-18 mg/dL Creatinine 1.0 0.5-1.3 mg/dL Glomerular Filtration Rate Calc 99 >90 mL/min Random Glucose 132 H 70-105 mg/dL Total Calcium 8.6 8.5-10.1 mg/dL Phosphorus Level 4.2 2.5-4.9 mg/dL Magnesium Level 1.90 1.80-2.40 mg/dL Total Bilirubin 0.5 0.2-1.0 mg/dL Aspartate Amino Transf (AST/SGOT) 48 H 10-37 U/L Alanine Aminotransferase (ALT/SGPT) 39 12-78 U/L Alkaline Phosphatase 80 50-136 U/L Total Protein 7.1 6.0-8.3 g/dL Albumin 3.1 L 3.5-5.0 g/dL Lactic Acid Level 1.8 0.8-2.5 mmol/L Total Creatine Kinase 451 #*H 21-232 U/L Procalcitonin < 0.05 L 0.05-0.5 ng/mL HIV (1&2) Antibody Non-Reactive Negative HIV P24 Antigen, Qualitative Non-Reactive Negative Test 06/26/24 22:28 06/26/24 21:42 06/26/24 21:19 06/26/24 20:59 Range/Units Blood Gas Specimen Type Arterial Arterial Blood pH 7.471 H 7.350-7.450 Arterial Blood Partial Pressure CO2 31 L 35-48 mmHg Arterial Blood Partial Pressure O2 74.7 L 83.0-108.0 mmHg Arterial Blood HCO3 22.3 21.0-28.0 mmol/L Arterial Blood Oxygen Saturation 95.9 94.0-98.0 % Arterial Blood Base Excess -0.3 -2.0-3.0 mmol/L Blood Gas Temperature 37.0 35.5-37.0 CELSIUS Blood Gas Flow-by 2.00 0.00-15.00 L/min Blood Gas Vent Mode 2LNC ROOM AIR FiO2 28.0 % Blood Gas Specimen Comment RR RN Ammonia 21 11-32 umol/L Urine Color LIGHT-YELLOW YELLOW Urine Appearance CLEAR CLEAR Urine pH 7.0 5.0-8.0 Urine Specific [place] 1.008 1.001-1.031 Urine Protein 200 H NEGATIVE mg/dL Urine Glucose (UA) NEGATIVE NEGATIVE mg/dL Urine Ketones NEGATIVE NEGATIVE mg/dL Urine Occult Blood LARGE H NEGATIVE Urine Nitrate NEGATIVE NEGATIVE Urine Bilirubin NEGATIVE NEGATIVE mg/dL Urine Urobilinogen 0.2 0.2-1.0 mg/dL Urine Leukocyte Esterase NEGATIVE NEGATIVE Nallely/uL Urine RBC 51-100 H 0-1 /HPF Urine WBC 2-5 H 0-1 /HPF Urine Other Crystals (Auto) 3 None Seen /HPF Urine Bacteria None None Seen /HPF Influenza Type A Antigen Negative For Type A NEGATIVE Influenza Type B Antigen Negative For Type B NEGATIVE SARS-CoV-2 Antigen (Rapid) PRESUMPTIVE NEGATIVE NEGATIVE Group A Streptococcus Rapid negative NEGATIVE Test 06/26/24 20:56 Range/Units White Cell Morphology Comment See comments Troponin I High Sensitivity 18.5 4-75 ng/L B-Type Natriuretic Peptide 49 0-100 pg/mL Current Medications Medications (Trade) Dose Ordered Sig/Jocelynn Route PRN Reason Start Time Stop Time Status Last Admin Dose Admin Acetaminophen (TYLenol 325MG TAB) 650 mg Q6H PRN PO TEMPERATURE GREATER THAN 101.5 06/26/24 23:30 07/26/24 23:29 06/27/24 11:44 650 MG Albuterol (DUOneb) 1 UDVIAL [id number] IH 06/27/24 00:00 07/27/24 00:00 06/28/24 18:57 1 UDVIAL Azithromycin 250 ml @ 250 mls/hr Q24H IVPB 06/26/24 22:00 06/27/24 08:15 DC 06/26/24 22:11 250 MLS/HR Diltiazem HCl (CARDIzem 180MG CD) 180 mg DAILY PO 06/27/24 09:00 07/27/24 08:59 06/28/24 09:12 180 MG Doxycycline Hyclate (Doxycycline Hyclate) 100 mg BID PO 06/27/24 21:00 07/07/24 20:59 06/28/24 09:12 100 MG Enoxaparin Sodium (Lovenox) 40 mg DAILY SQ 06/27/24 09:00 07/27/24 08:59 06/28/24 09:13 40 MG Famotidine (Pepcid 20mg Tab) 20 mg DAILY PO 06/27/24 09:00 07/27/24 08:59 06/28/24 09:12 20 MG Guaifenesin (RobiTUSSin SUGAR-FREE 100 MG/ 5 ML UDCUP) 400 mg Q4H PRN PO cough 06/26/24 23:30 07/26/24 23:29 Hydralazine HCl (APRESOLine 20MG INJ) 10 mg Q6H PRN IV For:SBP above 160;DBP above 90 06/26/24 23:30 07/26/24 23:29 06/27/24 20:01 10 MG Hydrochlorothiazide (hydroCHLOROthiazide 25MG) 25 mg DAILY PO 06/28/24 10:00 07/28/24 09:59 06/28/24 11:19 25 MG Lactated Ringer's 1,000 ml @ 160 mls/hr Q6H15M IV 06/26/24 23:30 06/28/24 09:48 DC 06/28/24 09:20 160 MLS/HR Losartan Potassium (CozAAR 50 mg TAB) 50 mg BID PO 06/27/24 09:00 07/27/24 08:59 06/28/24 09:12 50 MG Morphine Sulfate (morPHINE 4MG SYG) 4 mg Q4H PRN IVP SEVERE PAIN (7-10) 06/26/24 23:30 07/03/24 23:29 Nifedipine (adALAT 30MG) 30 mg BID PO 06/28/24 10:00 06/28/24 09:46 DC Ondansetron HCl (zoFRAN 4MG INJ) 4 mg Q6H PRN IV NAUSEA/VOMITING 06/26/24 23:30 07/26/24 23:29 Piperacillin Sod/ Tazobactam Sod (Zosyn 3.375gm+NS 50ml) 3.375 gm Q8H IV 06/27/24 05:00 07/07/24 04:59 06/28/24 15:55 3.375 GM Vancomycin HCl 250 ml @ 125 mls/hr Q12H IV 06/28/24 01:00 07/08/24 00:59 06/28/24 16:48 125 MLS/HR Vancomycin HCl (Vancomycin Protocol) 1 each AD IV 06/27/24 12:00 07/11/24 11:59 DIAGNOSTICS / RADIOLOGY: [ ] ASSESSMENT: Sepsis, POA Pneumonia, POA Proteinuria, POA Hypertension, POA Tachycardia, improving Elevated lactic acid, POA PLAN: Continue Zosyn Continue Vancomycin protocol Continue doxycycline 100mg BID Follow up murine typhus panel Continue diltiazem 180mg q24h Continue lovenox Repeat CK Disposition: Pending improvement in clinical status TANYA GRENE MD June 28, 2024 19:41
[2024-06-28] MEDS ORDERED: IpraTROPium/alBUTERol SULFATE 3 ML SOLUTION IH PRN (22:00)
[2024-06-28] MEDS: IpraTROPium 0.5 MG/2.5 ML INH IH SCH (23:50)
[2024-06-29] VITALS (20 sets, daily range): BP systolic 113–155; BP diastolic 75–112; PULSE 84–120; RESP 18–27; TEMP 97.9–99.9; O2SAT 91–97
[2024-06-29] MEDS: VANCOMYCIN 1.75 GM/250 ML BAG 250 ML IV SCH ×2 (04:40→20:08)
[2024-06-29 05:55] LABS: BASOPHILS # (AUTO) 0.02 K/uL (0.00-0.20); BASOPHILS % (AUTO) 0.3 % (0.0-5.0); EOSINOPHILS # (AUTO) 0.01 K/uL (0.00-0.70); EOSINOPHILS % (AUTO) 0.1 % (0.0-8.0); HEMATOCRIT 48.1 % (42-54); IMMATURE GRANULOCYTE ABSOLUTE 0.02 K/uL (0-1); LYMPHOCYTES % (AUTO) 27.1 % (21.0-51.0); MEAN CORPUSCULAR HEMOGLOBIN 32.7 pg (27.0-33.0); MEAN CORPUSCULAR HGB CONC 34.3 g/dL (32.0-36.0); MEAN CORPUSCULAR VOLUME 95.2 fL (79-99); MONOCYTES # (AUTO) 0.9 K/uL (0.1-1.0); MONOCYTES % (AUTO) 12.3 % (3.0-13.0); NEUTROPHILS # (AUTO) 4.4 K/uL (1.8-7.7); NEUTROPHILS % (AUTO) 59.9 % (40.0-77.0); PLATELET COUNT (AUTO) 198 K/uL (130-400); RED BLOOD CELL COUNT(AUTO) 5.05 MIL/uL (4.50-6.20); WHITE BLOOD COUNT (AUTO) 7.4 K/uL (4.8-10.8)
[2024-06-29 06:22] LABS: BILIRUBIN,TOTAL 0.9 mg/dL (0.2-1.0); CREATININE 1.1 mg/dL (0.5-1.3); POTASSIUM 3.2 mmol/L (3.5-5.1); TOTAL PROTEIN, SERUM 6.8 g/dL (6.0-8.3)
--- NOTE | 2024-06-29 08:05 | EKG ---
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
--- NOTE | 2024-06-29 11:18 | HMCSR ---
APPROVED REPORT EXAM: Two-dimensional and M-mode echocardiogram with Doppler and color Doppler. INDICATION ICD: sinus tachycardia 2D Dimensions RVDd3.4 cmLVEF(%)56.7 (>50%)LVED Vol(simp.)88.0 mL IVSd0.8 (0.7-1.1cm)FS(%)28 %LVES Vol(simp.)40.0 mL LVDd2.6 (3.8-5.6cm)LA (2D)3.8 (1.6-4.0cm)LVEF(%, simp.)55 % PWd1.1 (0.7-1.1cm)Ao Root(2D)3.8 (2.0-3.7cm)LA ESV INDEX (BP)17.08 mL/m2 LVDs1.8 (2.5-4.0cm)LVOT diam2.2 (1.8-2.4cm) IVC diam1.7 cm Deformation Strain Apical 4-16.6 % Apical 2-12.6 % Apical 3-12.3 % Global Strain-13.8 % M-Mode Dimensions EPSS0.5 cm LA (MM)4.0 (1.6-4.0cm) Ao Root(MM)3.4 (2.0-3.7cm) Aortic Valve AoV Vmax1.2 m/Ramonita Peak GR5.3 mmHgLVOT Vmax0.9 m/s AoV VTI0.2 mAo Mean GR3.1 mmHgLVOT VTI0.11 m RUTH (VMAX)2.69 cm2AVA (VTI) 2.7 cm2 Mitral Valve MV E Vmax62.8 cm/sDECEL Gdse242 ms MV A Vmax74.5 cm/sP 1/2 T25 ms E/A ratio0.8MVA (PHT)8.7 cm2 TDI E/E' Medial6.0E/E' Lateral7.8 Medial E' Peak V10.51 cm/sLateral E' Peak V8.00 cm/s Pulmonary Valve PV Vmax0.8 m/sPV VTI0.13 mPV Mean GR1.9 mmHg PV Peak GR2.8 mmHg Left Ventricle The left ventricle is normal size. Global strain of -14%. There is normal left ventricular wall thick ness. LVEF is 55-60%. Stage I diastolic dysfunction. Right Ventricle The right ventricle is normal size. The right ventricular systolic function is normal. Atria The left atrium size is normal. The right atrium size is normal. Aortic Valve The aortic valve is normal in structure. No aortic regurgitation is present. There is no aortic valvu lar stenosis. Mitral Valve The mitral valve is normal in structure. There is no mitral valve regurgitation noted. There is no mi tral valve stenosis. Tricuspid Valve The tricuspid valve is normal in structure. There is no tricuspid valve regurgitation noted. Pulmonic Valve The pulmonary valve is normal in structure. There is no pulmonic valvular regurgitation. Great Vessels The aortic root is normal in size. The IVC is normal in size and collapses <50% with inspiration. Pericardium There is no pericardial effusion. Conclusion LVEF is 55-60%. Stage I diastolic dysfunction.
--- NOTE | 2024-06-29 12:16 | PN ---
[facility] PROGRESS NOTE Date of Service: June 29, 2024 Time of Service: 12:15 SUBJECTIVE: 06/27 seen at bedside, no acute events overnight. Last fever was yesterday with a T-max of a 102.7�, he continues to be tachycardic heart rate ranging from 102 up to 115, he has been hypertensive, losartan and nifedipine have been started. Potassium mildly low at 3.4, creatinine kinase increased to 451, last lactic acid was 3.3 up from 2.2, we will repeat lactic acid at 6:00 p.m.. Culture still pending, we will follow up. We will order Radha typhus panel, start vanc and doxycycline. Chest CT does not show any infiltrates, at bedside patient reports improvement in his headache and neck pain. He was able to move his neck independently without any major neck stiffness, meningitis not likely however if symptoms do not improve and began to worsen we will consider LP 06/28 patient seen at bedside, no acute events overnight. Continues with episodes of tachycardia, current cultures are no growth to date, lactic acid peaked at 3.1 yesterday before trending back down to 1.8 today. Creatinine kinase was elevated at 451 we will order a repeat. There was no obvious cause for his fever and tachycardia which means it may be viral in nature or murine typhus. is panel is still pending, we will continue with doxycycline. 06/29 patient is seen and examined at bedside, case discussed with the RN, no acute events overnight, patient following commands, father at bedside. The father stated that yesterday after the patient took a shower, he noticed some drops of blood on the towel, not sure where it came from. BP 142/106, heart rate of 120, hemoglobin stable 16.5, hematocrit 48.1. Potassium 3.2. Liver enzymes mildly elevated with an AST of 44. UA showed 51-100 RBCs. Continue supportive care with IV fluids, we will start LR at 75 mL/hours, continue broad- spectrum IV antibiotics. CT scan of the chest showing bilateral pulmonary infiltrates with a interstitial fibrosis. Pulmonary consultation requested, ID consultation requested, continue to follow results of septic workup. Requested CT abdomen and pelvis for further evaluation. REVIEW OF SYSTEMS 12 point review of systems negative unless noted in HPI PHYSICAL EXAM GENERAL APPEARANCE: The patient is awake, alert, and oriented, in no acute cardiopulmonary distress. NEUROLOGICAL: Cranial nerves II-XII grossly intact. Motor is 5/5 in bilateral upper and lower extremities proximal to distal. No sensory deficits. HEENT: Face is symmetric. Pupils are equal and reactive. Extraocular movements are intact. NECK: Supple. No JVD. No thyromegaly. No submental, submandibular, pre- /postauricular, occipital or supraclavicular lymphadenopathy. CHEST: Normal chest expansion. No Telemetry. LUNGS: Absence of any rales, rhonchi or any wheezing. CARDIOVASCULAR: Regular. S1 and S2 normal. No appreciable rubs, murmurs or gallops. ABDOMEN: Soft, nontender, and nondistended. There is no rebound, voluntary guarding, or rigidity. : Deferred. No Sibell. EXTREMITIES: Non-edematous and not cyanotic. No clubbing. Good capillary refill. SKIN: No skin breakdown. Vital Signs (last 8hr) Date Time Temp Pulse Resp B/P (MAP) Pulse Ox O2 Delivery O2 Flow Rate FiO2 06/29/24 11:14 99.5 120 18 142/106 93 Room Air 06/29/24 11:13 105 18 06/29/24 11:11 105 18 N/A Room Air 21 06/29/24 07:05 99.7 118 20 155/90 91 Room Air 06/29/24 06:28 116 18 06/29/24 06:27 116 18 N/A Room Air 21 LABS: Laboratory: Test 06/29/24 05:26 06/28/24 06:47 06/27/24 22:34 Range/Units White Blood Count 7.4 4.8-10.8 K/uL Red Blood Count 5.05 4.50-6.20 MIL/uL Hemoglobin 16.5 14.0-18.0 g/dL Hematocrit 48.1 42-54 % Mean Corpuscular Volume 95.2 79-99 fL Mean Corpuscular Hemoglobin 32.7 27.0-33.0 pg Mean Corpuscular Hemoglobin Concent 34.3 32.0-36.0 g/dL Red Cell Distribution Width 13.0 11.0-15.5 % Platelet Count 198 130-400 K/uL Mean Platelet Volume 11.2 H 7.5-10.5 fL Immature Granulocyte % (Auto) 0.3 0-1 % Neutrophils (%) (Auto) 59.9 40.0-77.0 % Lymphocytes (%) (Auto) 27.1 21.0-51.0 % Monocytes (%) (Auto) 12.3 3.0-13.0 % Eosinophils (%) (Auto) 0.1 0.0-8.0 % Basophils (%) (Auto) 0.3 0.0-5.0 % Neutrophils # (Auto) 4.4 1.8-7.7 K/uL Lymphocytes # (Auto) 2.0 1.0-4.8 K/uL Monocytes # (Auto) 0.9 0.1-1.0 K/uL Eosinophils # (Auto) 0.01 0.00-0.70 K/uL Basophils # (Auto) 0.02 0.00-0.20 K/uL Absolute Immature Granulocyte (auto 0.02 0-1 K/uL Nucleated Red Blood Cells 0.0 0.0-0.19 % Sodium Level 139 136-145 mmol/L Potassium Level 3.2 L 3.5-5.1 mmol/L Chloride Level 103 101-111 mmol/L Carbon Dioxide Level 28 21-32 mmol/L Blood Urea Nitrogen 14 7-18 mg/dL Creatinine 1.1 0.5-1.3 mg/dL Glomerular Filtration Rate Calc 88 >90 mL/min Random Glucose 122 H 70-105 mg/dL Total Calcium 8.4 L 8.5-10.1 mg/dL Total Bilirubin 0.9 # 0.2-1.0 mg/dL Aspartate Amino Transf (AST/SGOT) 44 H 10-37 U/L Alanine Aminotransferase (ALT/SGPT) 36 12-78 U/L Alkaline Phosphatase 74 50-136 U/L Total Creatine Kinase 260 #H 21-232 U/L Total Protein 6.8 6.0-8.3 g/dL Albumin 3.0 L 3.5-5.0 g/dL Phosphorus Level 4.2 2.5-4.9 mg/dL Magnesium Level 1.90 1.80-2.40 mg/dL Lactic Acid Level 1.8 0.8-2.5 mmol/L Current Medications Medications (Trade) Dose Ordered Sig/Jocelynn Route PRN Reason Start Time Stop Time Status Last Admin Dose Admin Acetaminophen (TYLenol 325MG TAB) 650 mg Q6H PRN PO TEMPERATURE GREATER THAN 101.5 06/26/24 23:30 07/26/24 23:29 06/27/24 11:44 650 MG Albuterol (DUOneb) 1 UDVIAL [id number] IH 06/27/24 00:00 06/28/24 21:55 DC 06/28/24 18:57 1 UDVIAL Albuterol (DUOneb) 1 UDVIAL [id number] PRN IH SHORTNESS OF BREATH 06/28/24 22:00 07/27/24 00:00 Azithromycin 250 ml @ 250 mls/hr Q24H IVPB 06/26/24 22:00 06/27/24 08:15 DC 06/26/24 22:11 250 MLS/HR Diltiazem HCl (CARDIzem 180MG CD) 180 mg DAILY PO 06/27/24 09:00 07/27/24 08:59 06/29/24 08:33 180 MG Doxycycline Hyclate (Doxycycline Hyclate) 100 mg BID PO 06/27/24 21:00 07/07/24 20:59 06/29/24 08:33 100 MG Enoxaparin Sodium (Lovenox) 40 mg DAILY SQ 06/27/24 09:00 07/27/24 08:59 06/29/24 08:34 40 MG Famotidine (Pepcid 20mg Tab) 20 mg DAILY PO 06/27/24 09:00 07/27/24 08:59 06/29/24 08:34 20 MG Guaifenesin (RobiTUSSin SUGAR-FREE 100 MG/ 5 ML UDCUP) 400 mg Q4H PRN PO cough 06/26/24 23:30 07/26/24 23:29 Hydralazine HCl (APRESOLine 20MG INJ) 10 mg Q6H PRN IV For:SBP above 160;DBP above 90 06/26/24 23:30 07/26/24 23:29 06/27/24 20:01 10 MG Hydrochlorothiazide (hydroCHLOROthiazide 25MG) 25 mg DAILY PO 06/28/24 10:00 07/28/24 09:59 06/29/24 08:34 25 MG Ipratropium [place] (AtrovENT UD) 0.5 MG [id number] IH 06/29/24 00:00 07/29/24 00:00 06/29/24 11:13 0.5 MG Lactated Ringer's 1,000 ml @ 160 mls/hr Q6H15M IV 06/26/24 23:30 06/28/24 09:48 DC 06/28/24 09:20 160 MLS/HR Losartan Potassium (CozAAR 50 mg TAB) 50 mg BID PO 06/27/24 09:00 07/27/24 08:59 06/29/24 08:34 50 MG Morphine Sulfate (morPHINE 4MG SYG) 4 mg Q4H PRN IVP SEVERE PAIN (7-10) 06/26/24 23:30 07/03/24 23:29 Nifedipine (adALAT 30MG) 30 mg BID PO 06/28/24 10:00 06/28/24 09:46 DC Ondansetron HCl (zoFRAN 4MG INJ) 4 mg Q6H PRN IV NAUSEA/VOMITING 06/26/24 23:30 07/26/24 23:29 Piperacillin Sod/ Tazobactam Sod (Zosyn 3.375gm+NS 50ml) 3.375 gm Q8H IV 06/27/24 05:00 07/07/24 04:59 06/29/24 04:40 3.375 GM Vancomycin HCl 250 ml @ 125 mls/hr Q12H IV 06/28/24 01:00 06/29/24 01:43 DC 06/28/24 16:48 125 MLS/HR Vancomycin HCl 250 ml @ 125 mls/hr Q12H IV 06/29/24 05:00 07/09/24 04:59 06/29/24 04:40 125 MLS/HR Vancomycin HCl (Vancomycin Protocol) 1 each AD IV 06/27/24 12:00 07/11/24 11:59 DIAGNOSTICS / RADIOLOGY: [ ] ASSESSMENT: Sepsis, POA Pneumonia, POA Proteinuria, POA Hypertension, POA Tachycardia, improving Elevated lactic acid, POA PLAN: Continue Zosyn Continue Vancomycin protocol Continue doxycycline 100mg BID Follow Results of septic workup Infectious disease consultation requested, we will follow input recommendation. Patient is still tachycardic, start the patient on LR at 75 mL/hours. To chair reactive Cardizem to Cardizem 30 mg p.o. q.8 hours. Continue lovenox A.m. labs Disposition: Pending improvement in clinical status ALFREDO LAROSE MD June 29, 2024 12:16
--- NOTE | 2024-06-29 13:34 | EKG ---
[facility] Test Date: 2024-06-29 Test Time: 13:31:52 Pat Name: ROMAN VARGAS Department: [facility] Room: 420 1 Gender: M Basket Turner: giuseppe : 1985 Requested By: ALFREDO LAROSE Order Number: [id number] Reading MD: Cj Dumont Measurements Intervals [place] Rate: 109 P: 53 OK: 156 QRS: -21 QRSD: 86 T: 143 QT: 348 QTc: 468 Interpretive Statements Sinus tachycardia Nonspecific ST and T wave abnormality Compared to ECG 06/28/2024 13:53:27 ST (T wave) deviation now present Right superior axis no longer present Myocardial infarct finding no longer present Electronically Signed On 06-29-2024 14:19:11 CDT by Cj Dumont Please click the below link to view image of tracing.
[2024-06-29] MEDS: LACTATED RINGERS 1000ML 1,000 ML IV SCH (14:13)
[2024-06-29 14:50] LABS: APPEARANCE,URINE CLEAR (CLEAR); BILIRUBIN,URINE NEGATIVE (NEGATIVE); COLOR,URINE YELLOW (YELLOW); GLUCOSE, URINE (UA) NEGATIVE (NEGATIVE); KETONES,URINE NEGATIVE (NEGATIVE); LEUKOCYTE ESTERASE ,URINE NEGATIVE Leu/uL (NEGATIVE); NITRATE,URINE NEGATIVE (NEGATIVE); OCCULT BLOOD,URINE MODERATE (NEGATIVE); PH,URINE 6.5 (5.0-8.0); PROTEIN,URINE 600 mg/dL (NEGATIVE); UROBILINOGEN,URINE 0.2 mg/dL (0.2-1.0)
[2024-06-29 14:51] LABS: ADD UA MICROSCOPIC YES
[2024-06-29 14:52] LABS: MUCUS,URINE RARE LPF (None Seen); SQUAMOUS EPITHELIAL CELL,UR RARE /HPF (0-2)
[2024-06-29 14:57] LABS: AMPHET/METH SCREEN,URINE NEGATIVE (NEGATIVE); BARBITURATE SCREEN, URINE NEGATIVE (NEGATIVE); BENZODIAZEPINES SCREEN,URINE NEGATIVE (NEGATIVE); CANNABINOID SCREEN,URINE NEGATIVE (NEGATIVE); COCAINE SCREEN,URINE NEGATIVE (NEGATIVE); OPIATE SCREEN,URINE NEGATIVE (NEGATIVE); PHENCYCLIDINE SCREEN,URINE NEGATIVE (NEGATIVE)
--- NOTE | 2024-06-29 16:56 | HMCIMG ---
Exam Type: CT ABDOMEN/PELVIS W/O CONTRAST Clinical Information: ABD PAIN Comparison: None CT Dose Index (CTDI): 10.20 mGy Dose Length Product (DLP): 530.00 total mGy-cm PROTOCOL: Routine noncontrast helical scanning of the abdomen and pelvis was performed at 5mm collimation. Findings: No evidence of nephro or ureterolithiasis is found. No hydronephrosis or ureteral dilatation is seen. There is evidence of bilateral medullary nephrocalcinosis, mild. The lung bases are clear. The stomach is unremarkable. It shows no wall thickening. No gross ulceration is seen. It is not overly distended. There are no surrounding inflammatory changes. No wall lesions are identified to suggest cancer. The spleen is unremarkable. It is not enlarged. The pancreas shows normal anatomy. It is not fatty replaced. It shows no lesions. The pancreatic duct is not dilated. The gallbladder is unremarkable. It shows no cholelithiasis. The gallbladder wall is normal in thickness. There is no pericholecystic fluid. The is no acute or chronic inflammation noted. The adrenal glands are unremarkable. There is no enlargement. No lesions are noted. The liver is unremarkable. It shows no focal masses. The appendix is unremarkable. It shows no evidence of inflammation. No appendicolith is seen. The small bowel is unremarkable. There is no evidence of dilatation to suggest obstruction. No evidence of adynamic ileus is seen. There is no small bowel wall thickening to suggest enteritis. The colon is unremarkable. The urinary bladder is unremarkable. There is no wall thickening to suggest tumor or inflammation. There are no intraluminal calculi. There are no diverticula. There is no evidence of chronic bladder outlet obstruction. There is no evidence of urinary bladder distention to suggest urinary retention. The other pelvic structures are unremarkable. The bony and vascular structures are unremarkable for the patient's age. IMPRESSION: Mild bilateral medullary nephrocalcinosis. No acute pathology. This study was performed using dose reduction techniques to include automated exposure control and/or adjustment of the mA and/or kV according to patient size.
[2024-06-29] MEDS ORDERED: VANCOMYCIN 1.75 GM/250 ML BAG 250 ML IV SCH (18:08)
[2024-06-29] MEDS: dilTIAZem 60MG TAB PO SCH (18:18)
[2024-06-29] MEDS ORDERED: PoTASSium chl 10% ELIXIR 20MEQ 20 MEQ/15 ML UDCUP PO PRN (21:30)
[2024-06-29] MEDS ORDERED: PoTASSium chloRIDE 20MEQ/100ML 100 ML IV PRN (21:30)
[2024-06-29] MEDS: PoTASSium chloRIDE 20MEQ ER 20 MEQ ERTAB PO PRN (21:57)
[2024-06-30] VITALS (16 sets, daily range): BP systolic 116–153; BP diastolic 65–100; PULSE 81–113; RESP 20–23; TEMP 97.6–99.4; O2SAT 94–99
--- NOTE | 2024-06-30 00:45 | NUR ---
[employer] day shift paged for consult around noon. no call back i paged cheri sandhu for consult. he said to call again in the morning for consult for pneumonia
--- NOTE | 2024-06-30 00:58 | NUR ---
bench[employer] nonog tamanish, nonprofit manager, at bedside and spoke with the patient. no new orders given.
--- NOTE | 2024-06-30 01:13 | CONS ---
[facility] CONSULTATION NOTE Date Patient Seen: June 30, 2024 Time of Visit: 01:04 Supervising Physician: Dr. Dewey Willingham Reason for Consultation: Hypoxic respiratory, pneumonia Consulting Physician: Hospitalist Outpatient Specialists: [ ] Inpatient Consults: [ ] PROBLEM LIST: Acute hypoxic respiratory failure, POA Community-acquired pneumonia, POA KRISTIE, uses CPAP at home Severe sepsis, POA Hypertension, POA Hyperlipidemia, POA Hypokalemia, POA PLAN: Continue O2 therapy Antibiotic management per primary DuoNeb q.6 Mucomyst b.i.d. Follow up culture results Treat fever aggressively Aspiration precautions Keep head of bed above 30� Pulmonary toilet HPI: 38-year-old male with past medical history of KRISTIE, hyperlipidemia, hypertension who initially presented to ED last June 26, 2024 with complaint of headache, fever, and elevated blood pressure and found to have severe sepsis, acute hypoxic respiratory failure, and possible community-acquired pneumonia. Initial lab work in ED showed CBC was unremarkable, with lactic acid of lactic acid is 3.0, chest x-ray and CT of chest does show bilateral interstitial infi ltrates with interstitial fibrosis. Patient was subsequently placed on empiric antibiotics and admitted in the nursing tower. While in the tower patient continued to have episodes of fever with worsening lactic acid level. ID was subsequently consulted as well as Pulmonary service for evaluation of pneumonia. Patient was seen and examined in his room with mother present at bedside. At present patient is currently hemodynamically stable, afebrile, on BiPAP, with appropriate oxygen saturation. Patient denies any headache, chest pain, abdominal pain, difficulty urinating, diarrhea, however complains of periodic cough and generalized body weakness. Patient denies any smoking, alcohol intake, illicit drug use. Patient is unmarried and does not have ketone his own. Patient stays with his parents. PAST MEDICAL HX: see above PAST SURGICAL HX: noncontributory SOCIAL HISTORY: No tobacco, ETOH, or illicit drug use Coded Allergies: No Known Allergies (Unverified Allergy, Unknown, 02/27/21) REVIEW OF SYSTEMS: 12 point ROS reviewed with patient. Pertinent positives mentioned above. Otherwise negative. PHYSICAL EXAM: GENERAL: alert, weak, awake oriented x 3 HEENT: EOMI, Sclera non icteric, moist mucosa NECK: Supple, no JVD, trachea midline LUNGS: Clear breath sounds bilaterally. No wheezes HEART: Regular rate and rhythm. Normal S1 and S2, without murmurs ABD: Abdomen soft, nontender. Bowel sounds present EXT: No clubbing cyanosis or edema NEURO: Alert and oriented to person, follows commands Vital Signs (last 8hr) Date Time Temp Pulse Resp B/P (MAP) Pulse Ox O2 Delivery O2 Flow Rate FiO2 06/30/24 00:21 101 23 21 06/29/24 23:52 87 20 06/29/24 23:22 99.1 84 26 129/80 100 BIPAP 06/29/24 22:03 101 21 21 06/29/24 21:37 98 19 N/A Room Air 21 06/29/24 19:28 113 20 06/29/24 19:25 94 Room Air* 0 21 06/29/24 19:10 99.9 86 19 118/75 94 Room Air LABS: Hematology Labs: Test 06/29/24 05:26 Range/Units White Blood Count 7.4 4.8-10.8 K/uL Red Blood Count 5.05 4.50-6.20 MIL/uL Hemoglobin 16.5 14.0-18.0 g/dL Hematocrit 48.1 42-54 % Mean Corpuscular Volume 95.2 79-99 fL Mean Corpuscular Hemoglobin 32.7 27.0-33.0 pg Mean Corpuscular Hemoglobin Concent 34.3 32.0-36.0 g/dL Red Cell Distribution Width 13.0 11.0-15.5 % Platelet Count 198 130-400 K/uL Mean Platelet Volume 11.2 H 7.5-10.5 fL Immature Granulocyte % (Auto) 0.3 0-1 % Neutrophils (%) (Auto) 59.9 40.0-77.0 % Lymphocytes (%) (Auto) 27.1 21.0-51.0 % Monocytes (%) (Auto) 12.3 3.0-13.0 % Eosinophils (%) (Auto) 0.1 0.0-8.0 % Basophils (%) (Auto) 0.3 0.0-5.0 % Neutrophils # (Auto) 4.4 1.8-7.7 K/uL Lymphocytes # (Auto) 2.0 1.0-4.8 K/uL Monocytes # (Auto) 0.9 0.1-1.0 K/uL Eosinophils # (Auto) 0.01 0.00-0.70 K/uL Basophils # (Auto) 0.02 0.00-0.20 K/uL Absolute Immature Granulocyte (auto 0.02 0-1 K/uL Nucleated Red Blood Cells 0.0 0.0-0.19 % Chemistry Labs: Test 06/29/24 05:26 06/28/24 06:47 Range/Units Sodium Level 139 136-145 mmol/L Potassium Level 3.2 L 3.5-5.1 mmol/L Chloride Level 103 101-111 mmol/L Carbon Dioxide Level 28 21-32 mmol/L Blood Urea Nitrogen 14 7-18 mg/dL Creatinine 1.1 0.5-1.3 mg/dL Glomerular Filtration Rate Calc 88 >90 mL/min Random Glucose 122 H 70-105 mg/dL Total Calcium 8.4 L 8.5-10.1 mg/dL Total Bilirubin 0.9 # 0.2-1.0 mg/dL Aspartate Amino Transf (AST/SGOT) 44 H 10-37 U/L Alanine Aminotransferase (ALT/SGPT) 36 12-78 U/L Alkaline Phosphatase 74 50-136 U/L Total Creatine Kinase 260 #H 21-232 U/L Total Protein 6.8 6.0-8.3 g/dL Albumin 3.0 L 3.5-5.0 g/dL Phosphorus Level 4.2 2.5-4.9 mg/dL Magnesium Level 1.90 1.80-2.40 mg/dL DIAGNOSTICS / RADIOLOGY RESULTS: CT CHEST W/CONTRAST HISTORY: Abnormal x-ray COMPARISON: None TECHNIQUE: Multiple sequential axial images of the chest were obtained from the thoracic inlet through upper abdomen. Patient was given 50 cc of Omnipaque through intravenous route. FINDINGS: Mild bilateral pulmonary infiltrates are seen with interstitial fibrosis No pleural effusion or pericardial effusion is seen. There is no evidence of pneumothorax. There are normal size mediastinal and hilar lymph nodes. The heart is not enlarged. Degenerative changes of the thoracolumbar spine are present. There is no evidence of adrenal nodule. IMPRESSION: 1. Bilateral pulmonary infiltrates with interstitial fibrosis. CT was performed with one or more following dose reduction techniques: automated exposure control, adjustment of the mA and kv according to patient's size, or use of a iterative reconstruction technique. PLAN NEURO: Minimize central acting medications as possible. Maintain fall precautions, adequate lighting during the day PULMONARY: Supplemental 02 as needed. Maintain aspiration precautions at all times CARDIOVASCULAR: Follow hemodynamics. Vital signs per facility protocol GI & NUTRITION: Continue with nutritional support. Continue stool softeners and laxatives as needed. KIDNEYS & ELECTROLYTES: Strict monitoring of intake, output and overall fluid balance. Avoid nephrotoxic medications to the extent possible. Medications to be dosed according to renal function. Monitor electrolytes and replace as needed ENDOCRINE: Maintain blood glucose between 100-180 at all times. Hypoglycemia protocol in place INFECTIOUS DISEASE: Trend temperature, WBC and procalcitonin level Follow cultures, deescalate antibiotics as soon as possible. Panculture if new onset fever ONCOLOGY/HEMATOLOGY/COAGULATION: Monitor for s/s of bleeding Monitor hemoglobin, coagulation studies as needed SKIN: Pressure ulcer prevention per facility protocol Specialty mattress ORTHO/REHAB: Continue PT/OT Prophylaxis: Continue GI and DVT prophylaxis Code Status: Full Resuscitation Disposition: TBD Other: Total patient care time exceeds 35 minutes excluding all procedures. Supervising physician: RHIANNA Dewey DERRICK FOLLOWER June 30, 2024 01:13
--- NOTE | 2024-06-30 02:58 | NUR ---
nurse note patient alert and oriented times 4. plan of care discussed with him and he verbalized understanding. Patient is ambulatory with assistance. Patient has no pain tonight. Old IV on his left hand removed and makayla vazquez placed a 20 gauge on the right AC. Dr. russell is still pending to see the patient. The patient using cpap at night to sleep. He has slept about 4 hours tonight. Call light within reach, bed alarm on, 2 side rails up. will continue to monitor patient.
[2024-06-30 04:34] LABS: BASOPHILS # (AUTO) 0.01 K/uL (0.00-0.20); BASOPHILS % (AUTO) 0.2 % (0.0-5.0); EOSINOPHILS # (AUTO) 0.03 K/uL (0.00-0.70); EOSINOPHILS % (AUTO) 0.5 % (0.0-8.0); HEMATOCRIT 45.1 % (42-54); IMMATURE GRANULOCYTE ABSOLUTE 0.01 K/uL (0-1); LYMPHOCYTES # (AUTO) 2.6 K/uL (1.0-4.8); MEAN CORPUSCULAR HEMOGLOBIN 32.6 pg (27.0-33.0); MEAN CORPUSCULAR HGB CONC 34.4 g/dL (32.0-36.0); MEAN CORPUSCULAR VOLUME 94.9 fL (79-99); MONOCYTES # (AUTO) 0.8 K/uL (0.1-1.0); MONOCYTES % (AUTO) 12.7 % (3.0-13.0); NEUTROPHILS # (AUTO) 2.5 K/uL (1.8-7.7); NEUTROPHILS % (AUTO) 42.4 % (40.0-77.0); PLATELET COUNT (AUTO) 193 K/uL (130-400); RED BLOOD CELL COUNT(AUTO) 4.75 MIL/uL (4.50-6.20); RED CELL DISTRIBUTION WIDTH 12.9 % (11.0-15.5); WHITE BLOOD COUNT (AUTO) 5.9 K/uL (4.8-10.8)
[2024-06-30 05:02] LABS: ALBUMIN 2.8 g/dL (3.5-5.0); BILIRUBIN,TOTAL 0.7 mg/dL (0.2-1.0); CREATININE 1.1 mg/dL (0.5-1.3); MAGNESIUM 1.3 mg/dL (1.80-2.40); POTASSIUM 3.6 mmol/L (3.5-5.1); TOTAL PROTEIN, SERUM 6.3 g/dL (6.0-8.3)
[2024-06-30] MEDS: MAGNESIUM 2GM PREMIX 50ML 50 ML IV PRN (05:43)
--- NOTE | 2024-06-30 07:02 | NUR ---
infectious disease let dr. russell know about consult. pending call back.
[2024-06-30] MEDS ORDERED: MAGNESIUM 2GM PREMIX 50ML 50 ML IV SCH (12:30)
--- NOTE | 2024-06-30 13:02 | PN ---
[facility] PROGRESS NOTE Date of Service: June 30, 2024 Time of Service: 12:59 SUBJECTIVE: 06/27 seen at bedside, no acute events overnight. Last fever was yesterday with a T-max of a 102.7�, he continues to be tachycardic heart rate ranging from 102 up to 115, he has been hypertensive, losartan and nifedipine have been started. Potassium mildly low at 3.4, creatinine kinase increased to 451, last lactic acid was 3.3 up from 2.2, we will repeat lactic acid at 6:00 p.m.. Culture still pending, we will follow up. We will order Radha typhus panel, start vanc and doxycycline. Chest CT does not show any infiltrates, at bedside patient reports improvement in his headache and neck pain. He was able to move his neck independently without any major neck stiffness, meningitis not likely however if symptoms do not improve and began to worsen we will consider LP 06/28 patient seen at bedside, no acute events overnight. Continues with episodes of tachycardia, current cultures are no growth to date, lactic acid peaked at 3.1 yesterday before trending back down to 1.8 today. Creatinine kinase was elevated at 451 we will order a repeat. There was no obvious cause for his fever and tachycardia which means it may be viral in nature or murine typhus. is panel is still pending, we will continue with doxycycline. 06/29 patient is seen and examined at bedside, case discussed with the RN, no acute events overnight, patient following commands, father at bedside. The father stated that yesterday after the patient took a shower, he noticed some drops of blood on the towel, not sure where it came from. BP 142/106, heart rate of 120, hemoglobin stable 16.5, hematocrit 48.1. Potassium 3.2. Liver enzymes mildly elevated with an AST of 44. UA showed 51-100 RBCs. Continue supportive care with IV fluids, we will start LR at 75 mL/hours, continue broad- spectrum IV antibiotics. CT scan of the chest showing bilateral pulmonary infiltrates with a interstitial fibrosis. Pulmonary consultation requested, ID consultation requested, continue to follow results of septic workup. Requested CT abdomen and pelvis for further evaluation. 06/30 patient is seen and examined at bedside, case discussed with the RN, no acute events overnight, during my visit the patient is sitting comfortably in the chair, followed commands, getting IV fluids, IV antibiotics. Results of CT of the abdomen reviewed, discussed with the mother at bedside, all questions answered. We will order renal ultrasound for further evaluation. She is in agreement. REVIEW OF SYSTEMS 12 point review of systems negative unless noted in HPI PHYSICAL EXAM GENERAL APPEARANCE: The patient is awake, alert, and oriented, in no acute cardiopulmonary distress. NEUROLOGICAL: Cranial nerves II-XII grossly intact. Motor is 5/5 in bilateral upper and lower extremities proximal to distal. No sensory deficits. HEENT: Face is symmetric. Pupils are equal and reactive. Extraocular movements are intact. NECK: Supple. No JVD. No thyromegaly. No submental, submandibular, pre- /postauricular, occipital or supraclavicular lymphadenopathy. CHEST: Normal chest expansion. No Telemetry. LUNGS: Absence of any rales, rhonchi or any wheezing. CARDIOVASCULAR: Regular. S1 and S2 normal. No appreciable rubs, murmurs or gallops. ABDOMEN: Soft, nontender, and nondistended. There is no rebound, voluntary guarding, or rigidity. : Deferred. No Isbell. EXTREMITIES: Non-edematous and not cyanotic. No clubbing. Good capillary refill. SKIN: No skin breakdown. Vital Signs (last 8hr) Date Time Temp Pulse Resp B/P (MAP) Pulse Ox O2 Delivery O2 Flow Rate FiO2 06/30/24 11:32 97.5 87 20 135/83 100 Room Air 06/30/24 09:10 86 20 N/A Room Air 06/30/24 07:25 98.1 98 22 143/88 100 Room Air 06/30/24 06:42 88 20 06/30/24 06:30 86 20 LABS: Laboratory: Test 06/30/24 04:17 06/29/24 16:33 06/29/24 14:15 06/29/24 05:26 Range/Units White Blood Count 5.9 4.8-10.8 K/uL Red Blood Count 4.75 4.50-6.20 MIL/uL Hemoglobin 15.5 14.0-18.0 g/dL Hematocrit 45.1 42-54 % Mean Corpuscular Volume 94.9 79-99 fL Mean Corpuscular Hemoglobin 32.6 27.0-33.0 pg Mean Corpuscular Hemoglobin Concent 34.4 32.0-36.0 g/dL Red Cell Distribution Width 12.9 11.0-15.5 % Platelet Count 193 130-400 K/uL Mean Platelet Volume 11.0 H 7.5-10.5 fL Immature Granulocyte % (Auto) 0.2 0-1 % Neutrophils (%) (Auto) 42.4 40.0-77.0 % Lymphocytes (%) (Auto) 44.0 21.0-51.0 % Monocytes (%) (Auto) 12.7 3.0-13.0 % Eosinophils (%) (Auto) 0.5 0.0-8.0 % Basophils (%) (Auto) 0.2 0.0-5.0 % Neutrophils # (Auto) 2.5 1.8-7.7 K/uL Lymphocytes # (Auto) 2.6 1.0-4.8 K/uL Monocytes # (Auto) 0.8 0.1-1.0 K/uL Eosinophils # (Auto) 0.03 0.00-0.70 K/uL Basophils # (Auto) 0.01 0.00-0.20 K/uL Absolute Immature Granulocyte (auto 0.01 0-1 K/uL Nucleated Red Blood Cells 0.0 0.0-0.19 % Sodium Level 140 136-145 mmol/L Potassium Level 3.6 3.5-5.1 mmol/L Chloride Level 105 101-111 mmol/L Carbon Dioxide Level 28 21-32 mmol/L Blood Urea Nitrogen 16 7-18 mg/dL Creatinine 1.1 0.5-1.3 mg/dL Glomerular Filtration Rate Calc 88 >90 mL/min Random Glucose 125 H 70-105 mg/dL Total Calcium 8.4 L 8.5-10.1 mg/dL Magnesium Level 1.30 L 1.80-2.40 mg/dL Total Bilirubin 0.7 # 0.2-1.0 mg/dL Aspartate Amino Transf (AST/SGOT) 47 H 10-37 U/L Alanine Aminotransferase (ALT/SGPT) 48 # 12-78 U/L Alkaline Phosphatase 71 50-136 U/L Total Protein 6.3 6.0-8.3 g/dL Albumin 2.8 L 3.5-5.0 g/dL Vancomycin Level Trough 11.1 10.0-20.0 UG/ML Urine Color YELLOW YELLOW Urine Appearance CLEAR CLEAR Urine pH 6.5 5.0-8.0 Urine Specific [place] 1.020 1.001-1.031 Urine Protein 600 H NEGATIVE mg/dL Urine Glucose (UA) NEGATIVE NEGATIVE mg/dL Urine Ketones NEGATIVE NEGATIVE mg/dL Urine Occult Blood MODERATE H NEGATIVE Urine Nitrate NEGATIVE NEGATIVE Urine Bilirubin NEGATIVE NEGATIVE mg/dL Urine Urobilinogen 0.2 0.2-1.0 mg/dL Urine Leukocyte Esterase NEGATIVE NEGATIVE Nallely/uL Urine RBC 11-25 H 0-1 /HPF Urine WBC 2-5 H 0-1 /HPF Urine Squamous Epithelial Cells RARE 0-2 /HPF Urine Bacteria None None Seen /HPF Urine Opiates Screen NEGATIVE NEGATIVE Urine Barbiturates Screen NEGATIVE NEGATIVE Urine Phencyclidine Screen NEGATIVE NEGATIVE Urine Amphetamines Screen NEGATIVE NEGATIVE Urine Benzodiazepines Screen NEGATIVE NEGATIVE Urine Cocaine Screen NEGATIVE NEGATIVE Urine Marijuana (THC) Screen NEGATIVE NEGATIVE Total Creatine Kinase 260 #H 21-232 U/L Current Medications Medications (Trade) Dose Ordered Sig/Jocelynn Route PRN Reason Start Time Stop Time Status Last Admin Dose Admin Acetaminophen (TYLenol 325MG TAB) 650 mg Q6H PRN PO TEMPERATURE GREATER THAN 101.5 06/26/24 23:30 07/26/24 23:29 06/29/24 20:08 650 MG Albuterol (DUOneb) 1 UDVIAL [id number] IH 06/27/24 00:00 06/28/24 21:55 DC 06/28/24 18:57 1 UDVIAL Albuterol (DUOneb) 1 UDVIAL [id number] PRN IH SHORTNESS OF BREATH 06/28/24 22:00 07/27/24 00:00 Azithromycin 250 ml @ 250 mls/hr Q24H IVPB 06/26/24 22:00 06/27/24 08:15 DC 06/26/24 22:11 250 MLS/HR Diltiazem HCl (CARDIzem 180MG CD) 180 mg DAILY PO 06/27/24 09:00 06/29/24 13:12 DC 06/29/24 08:33 180 MG Diltiazem HCl (CARDIzem 60MG TAB) 30 mg Q6H6 PO 06/29/24 18:00 07/29/24 17:59 06/30/24 04:27 30 MG Doxycycline Hyclate (Doxycycline Hyclate) 100 mg BID PO 06/27/24 21:00 07/07/24 20:59 06/30/24 10:48 100 MG Enoxaparin Sodium (Lovenox) 40 mg DAILY SQ 06/27/24 09:00 07/27/24 08:59 06/30/24 10:49 40 MG Famotidine (Pepcid 20mg Tab) 20 mg DAILY PO 06/27/24 09:00 07/27/24 08:59 06/30/24 10:48 20 MG Guaifenesin (RobiTUSSin SUGAR-FREE 100 MG/ 5 ML UDCUP) 400 mg Q4H PRN PO cough 06/26/24 23:30 07/26/24 23:29 Hydralazine HCl (APRESOLine 20MG INJ) 10 mg Q6H PRN IV For:SBP above 160;DBP above 90 06/26/24 23:30 07/26/24 23:29 06/27/24 20:01 10 MG Hydrochlorothiazide (hydroCHLOROthiazide 25MG) 25 mg DAILY PO 06/28/24 10:00 07/28/24 09:59 06/30/24 10:48 25 MG Ipratropium Roberts (AtrovENT UD) 0.5 MG [id number] IH 06/29/24 00:00 07/29/24 00:00 06/30/24 11:12 0.5 MG Lactated Ringer's 1,000 ml @ 75 mls/hr [id number] IV 06/29/24 12:30 07/29/24 12:29 06/30/24 04:23 75 MLS/HR Lactated Ringer's 1,000 ml @ 160 mls/hr Q6H15M IV 06/26/24 23:30 06/28/24 09:48 DC 06/28/24 09:20 160 MLS/HR Losartan Potassium (CozAAR 50 mg TAB) 50 mg BID PO 06/27/24 09:00 07/27/24 08:59 06/30/24 10:47 50 MG Magnesium Sulfate 50 ml @ 0 mls/hr PROTOCOL IV 06/30/24 12:30 06/30/24 12:13 DC Magnesium Sulfate 50 ml @ 0 mls/hr PROTOCOL PRN IV hypomagnesemia 06/29/24 21:30 07/29/24 21:29 06/30/24 05:43 15 MLS/HR Morphine Sulfate (morPHINE 4MG SYG) 4 mg Q4H PRN IVP SEVERE PAIN (7-10) 06/26/24 23:30 07/03/24 23:29 Nifedipine (adALAT 30MG) 30 mg BID PO 06/28/24 10:00 06/28/24 09:46 DC Ondansetron HCl (zoFRAN 4MG INJ) 4 mg Q6H PRN IV NAUSEA/VOMITING 06/26/24 23:30 07/26/24 23:29 Piperacillin Sod/ Tazobactam Sod (Zosyn 3.375gm+NS 50ml) 3.375 gm Q8H IV 06/27/24 05:00 07/07/24 04:59 06/30/24 04:23 3.375 GM Potassium Chloride 100 ml @ 100 mls/hr AD PRN IV POTASSIUM PROTOCOL 06/29/24 21:30 07/29/24 21:29 Potassium Chloride (K-Dur/Klor-Con 20meq) 20 meq AD PRN PO POTASSIUM PROTOCOL 06/29/24 21:30 07/29/24 21:29 06/30/24 10:48 20 MEQ Potassium Chloride (KCl 10% Elixir 20meq/15ml) 20 meq AD PRN PO POTASSIUM PROTOCOL 06/29/24 21:30 07/29/24 21:29 Vancomycin HCl 250 ml @ 125 mls/hr BID@0600,1800 IV 06/29/24 18:08 07/09/24 18:07 Cancel Vancomycin HCl 250 ml @ 125 mls/hr Q12H IV 06/28/24 01:00 06/29/24 01:43 DC 06/28/24 16:48 125 MLS/HR Vancomycin HCl 250 ml @ 125 mls/hr Q12H IV 06/29/24 05:00 06/29/24 18:13 DC 06/29/24 04:40 125 MLS/HR Vancomycin HCl 250 ml @ 125 mls/hr Q12H9 IV 06/29/24 21:00 07/09/24 20:59 06/30/24 10:50 125 MLS/HR Vancomycin HCl (Vancomycin Protocol) 1 each AD IV 06/27/24 12:00 07/11/24 11:59 DIAGNOSTICS / RADIOLOGY: [ ] ASSESSMENT: Sepsis, POA Pneumonia, POA Proteinuria, POA Hypertension, POA Tachycardia, improving Elevated lactic acid, POA PLAN: Patient remains admitted to the medical floor Continue the patient on broad-spectrum IV antibiotics Infectious disease consultation requested, we will follow input and recommendation Results of CT of the abdomen reviewed, unremarkable, no acute findings, however on UA the patient with a moderate amount of RBCs, we will request renal ultrasound Continue Zosyn Continue Vancomycin protocol Continue doxycycline 100mg BID Follow Results of septic workup Infectious disease consultation requested, we will follow input recommendation. Tachycardia resolved after starting the patient on supportive care with IV fluids and changing Cardizem CD from 180 mg p.o. daily to 30 mg p.o. q.i.d. Twelve lead EKG done reviewed, showing sinus tachycardia, now improved. Continue to monitor NEURO: Minimize central acting medications as possible. Fall Precautions. Well lighted room through the day and minimize interruptions through the night to prevent acute delirium. PULMONARY: Supplemental 02 as needed BiPAP as necessary, for respiratory distress Titrate Fio2 to keep Spo2 > or = 90% DuoNeb�s and CPT as needed IS hourly while awake for pulmonary hygiene prn Out of bed to chair as tolerated Maintain aspiration precautions at all times CARDIOVASCULAR: Follow hemodynamics. Vital signs per facility protocol GI & NUTRITION: Continue nutritional support Aspirations precautions Prokinetic agents and laxatives as needed KIDNEYS & ELECTROLYTES: Strict monitoring of intake and output Daily weights Avoid nephrotoxic agents Monitor electrolytes and replace as needed Goal urine output of 30mL/hr or 0.5mL/kg/hr Medications to be dosed according to renal function. Avoid contrast if possible ENDOCRINE: Maintain blood glucose between 100-180 at all times. Insulin sliding scale for blood glucose management Hypoglycemia and hyperglycemia protocol in place INFECTIOUS DISEASE: Trend temperature, WBC and procalcitonin level Follow cultures, deescalate antibiotics as soon as possible. Panculture if new onset fever HEMATOLOGY & COAGULATION: Monitor H&H. Keep Hgb > 7 Transfuse 1 unit of PRBC for Hgb < 7 Transfuse 1 pack of platelets of platelets < 20, 000 Watch for any signs and symptoms of bleeding SKIN: Pressure ulcer prevention per facility protocol Specialty mattress as needed ORTHO/REHAB Continue PT/OT PRN: MEDICATIONS Tylenol 650 mg po every 4 hrs for fever zofran 4 mg IV every 6 hrs for n/v Hydralazine 5 mg IV every 4 hrs systolic pressure > 160 bowel regiment: lactulose 20 gm PO BID PRN constipation Supportive measures: Continue GI and DVT prophylaxis Disposition: Pending improvement in clinical condition All questions answered time spent: > 35 min ALFREDO LAROSE MD June 30, 2024 13:02
--- NOTE | 2024-06-30 13:07 | PN ---
[facility] PROGRESS NOTE Date Patient Seen: June 30, 2024 Time of Visit: 13:07 Supervising Physician: [Dr. Verma] Consulting Physician: Hospitalist Outpatient Specialists: [ ] Inpatient Consults: [ ] PROBLEM LIST: Acute hypoxic respiratory failure, POA Community-acquired pneumonia, POA KRISTIE, uses CPAP at home Severe sepsis, POA Hypertension, POA Hyperlipidemia, POA Hypokalemia, POA PLAN: Continue O2 therapy Antibiotic management per primary DuoNeb q.6 Mucomyst b.i.d. Follow up culture results Treat fever aggressively Aspiration precautions Keep head of bed above 30� Pulmonary toilet INTERVAL HISTORY: [Patient is evaluated at bedside. He is saturating well on room air. Labs including CBC BNP are unremarkable. Blood, urine and sputum cultures are negat marco a. Continues on IV antibiotics per primary. ABGs within normal limits. Patient has a history of KRISTIE and uses CPAP machine. No new respiratory concerns. Patient is cleared for discharge from pulmonary standpoint, advised to follow up outpatient for KRISTIE management, verbalized understanding.] REVIEW OF SYSTEMS: 12 point ROS reviewed with patient. Pertinent positives mentioned above. Otherwise negative. PHYSICAL EXAM: GENERAL: alert, weak, awake oriented x 3, morbid obesity HEENT: EOMI, Sclera non icteric, moist mucosa NECK: Supple, no JVD, trachea midline LUNGS: Clear breath sounds bilaterally. No wheezes HEART: Regular rate and rhythm. Normal S1 and S2, without murmurs ABD: Abdomen soft, nontender. Bowel sounds present EXT: No clubbing cyanosis or edema NEURO: Alert and oriented to person, follows commands Vital Signs (last 8hr) Date Time Temp Pulse Resp B/P (MAP) Pulse Ox O2 Delivery O2 Flow Rate FiO2 06/30/24 11:32 97.5 87 20 135/83 100 Room Air 21 06/30/24 09:10 86 20 N/A Room Air 06/30/24 07:25 98.1 98 22 143/88 100 Room Air 21 06/30/24 06:42 88 20 06/30/24 06:30 86 20 LABS: Hematology Labs: Test 06/30/24 04:17 Range/Units White Blood Count 5.9 4.8-10.8 K/uL Red Blood Count 4.75 4.50-6.20 MIL/uL Hemoglobin 15.5 14.0-18.0 g/dL Hematocrit 45.1 42-54 % Mean Corpuscular Volume 94.9 79-99 fL Mean Corpuscular Hemoglobin 32.6 27.0-33.0 pg Mean Corpuscular Hemoglobin Concent 34.4 32.0-36.0 g/dL Red Cell Distribution Width 12.9 11.0-15.5 % Platelet Count 193 130-400 K/uL Mean Platelet Volume 11.0 H 7.5-10.5 fL Immature Granulocyte % (Auto) 0.2 0-1 % Neutrophils (%) (Auto) 42.4 40.0-77.0 % Lymphocytes (%) (Auto) 44.0 21.0-51.0 % Monocytes (%) (Auto) 12.7 3.0-13.0 % Eosinophils (%) (Auto) 0.5 0.0-8.0 % Basophils (%) (Auto) 0.2 0.0-5.0 % Neutrophils # (Auto) 2.5 1.8-7.7 K/uL Lymphocytes # (Auto) 2.6 1.0-4.8 K/uL Monocytes # (Auto) 0.8 0.1-1.0 K/uL Eosinophils # (Auto) 0.03 0.00-0.70 K/uL Basophils # (Auto) 0.01 0.00-0.20 K/uL Absolute Immature Granulocyte (auto 0.01 0-1 K/uL Nucleated Red Blood Cells 0.0 0.0-0.19 % Chemistry Labs: Test 06/30/24 04:17 06/29/24 05:26 Range/Units Sodium Level 140 136-145 mmol/L Potassium Level 3.6 3.5-5.1 mmol/L Chloride Level 105 101-111 mmol/L Carbon Dioxide Level 28 21-32 mmol/L Blood Urea Nitrogen 16 7-18 mg/dL Creatinine 1.1 0.5-1.3 mg/dL Glomerular Filtration Rate Calc 88 >90 mL/min Random Glucose 125 H 70-105 mg/dL Total Calcium 8.4 L 8.5-10.1 mg/dL Magnesium Level 1.30 L 1.80-2.40 mg/dL Total Bilirubin 0.7 # 0.2-1.0 mg/dL Aspartate Amino Transf (AST/SGOT) 47 H 10-37 U/L Alanine Aminotransferase (ALT/SGPT) 48 # 12-78 U/L Alkaline Phosphatase 71 50-136 U/L Total Protein 6.3 6.0-8.3 g/dL Albumin 2.8 L 3.5-5.0 g/dL Total Creatine Kinase 260 #H 21-232 U/L DIAGNOSTICS / RADIOLOGY RESULTS: [ ] PLAN NEURO: Minimize central acting medications as possible. Maintain fall precautions, adequate lighting during the day PULMONARY: Supplemental 02 as needed. Maintain aspiration precautions at all times CARDIOVASCULAR: Follow hemodynamics. Vital signs per facility protocol GI & NUTRITION: Continue with nutritional support. Continue stool softeners and laxatives as needed. KIDNEYS & ELECTROLYTES: Strict monitoring of intake, output and overall fluid balance. Avoid nephrotoxic medications to the extent possible. Medications to be dosed according to renal function. Monitor electrolytes and replace as needed ENDOCRINE: Maintain blood glucose between 100-180 at all times. Hypoglycemia protocol in place INFECTIOUS DISEASE: Trend temperature, WBC and procalcitonin level Follow cultures, deescalate antibiotics as soon as possible. Panculture if new onset fever ONCOLOGY/HEMATOLOGY/COAGULATION: Monitor for s/s of bleeding Monitor hemoglobin, coagulation studies as needed SKIN: Pressure ulcer prevention per facility protocol Specialty mattress ORTHO/REHAB: Continue PT/OT Prophylaxis: Continue GI and DVT prophylaxis Code Status: Full Resuscitation Disposition: TBD Other: Total patient care time exceeds 35 minutes excluding all procedures. JUAN BERG June 30, 2024 13:07
--- NOTE | 2024-06-30 18:11 | NUR ---
PENDING TYPHOYD RESULT PENDING. CK IMPROVED 260. [facility] [employer] AND DR. Christianson SAW PATIENT NEED TO F/U ON RECS. Addendum: 06/30/24 at 1812 by FRANKLIN HOGAN RN CM Amended: Links added.
[2024-07-01] VITALS (7 sets, daily range): BP systolic 133–150; BP diastolic 92–102; PULSE 96–103; RESP 17–22; TEMP 98.6–99.2; O2SAT 94–95
--- NOTE | 2024-07-01 03:25 | CONS ---
INFECTIOUS DISEASE CONSULTATION DATE OF SERVICE: 06/30/2024 REQUESTING PHYSICIAN: Iain Lamb MD REASON FOR CONSULTATION: Sepsis and pneumonia. HISTORY OF PRESENT ILLNESS: This is a 38-year-old male with morbid obesity, hypertension and dyslipidemia, who presents to the hospital with some headache, cough, and chills. The patient also complained of fever. T-max was 102.7. Phosphorus was 120. The patient found with elevated lactic acid of 3.0, was admitted as a case of sepsis due to pneumonia. Chest x-ray shows bilateral infiltrates, which was confirmed with a CT scan. The patient has been started on doxycycline and Zosyn. No hemoptysis or pleuritic pain. PAST MEDICAL HISTORY: * Hypertension. * Dyslipidemia. * Obesity. PAST SURGICAL HISTORY: Testicular surgery. ALLERGIES: No known drug allergies. CURRENT MEDICATIONS: * Zosyn. * Doxycycline. * Lovenox. * Cardizem. * . * Tylenol. * Zofran. SOCIAL HISTORY: Lives with mother. No alcohol, tobacco, or illicit drug use. FAMILY HISTORY: Noncontributory. REVIEW OF SYSTEMS: Greater than 10-system were reviewed and negative except as documented above. PHYSICAL EXAMINATION: GENERAL: Young male, awake. VITAL SIGNS: Temperature 97.5, pulse 87, respiratory rate 20, BP 135/83. EYES: No icterus. Pupils equal and reactive. HENT: No oral thrush seen. Moist oral mucosa. NECK: Supple. No JVD or thyromegaly. LUNGS: Good air entry. No rales. No rhonchi. CARDIOVASCULAR: S1 and S2, regular. No murmur heard. ABDOMEN: Full, soft, nontender, morbidly obese. No organomegaly. CENTRAL NERVOUS SYSTEM: Awake, alert and oriented x 3. No focal deficits. SKIN: No rashes. No itchiness. LYMPHATIC: No peripheral lymphadenopathy. BACK: No deformity. No pressure ulcer. MUSCULOSKELETAL: No joint swelling, erythema, or tenderness. LABORATORY DATA: Sodium 140, potassium 3.6, BUN 16, creatinine 1.1. WBC 5.9, hemoglobin 15.5, platelets 193. negative. Sputum culture shows normal liam. Blood culture, no growth for 3 days. RADIOLOGY: CT of the chest shows bilateral infiltrates. ASSESSMENT: A 38-year-old male presented with cough and fever. Current problems include: * Sepsis. * Multifocal pneumonia. * Morbid obesity. * Leukocytosis. * . PLAN: * Continue Zosyn. * Continue doxycycline. * Continue antihypertensive. * Continue pain management. * Continue DVT prophylaxis. * Continue nutritional support. * Monitor electrolyte. * The patient will be followed up closely. Thank you for allowing me to participate in the care of this patient. TID: [id number] RECEIPT: [id number]
[2024-07-01 05:33] LABS: HEMATOCRIT 45.7 % (42-54); MEAN CORPUSCULAR HEMOGLOBIN 32.5 pg (27.0-33.0); MEAN CORPUSCULAR HGB CONC 34.6 g/dL (32.0-36.0); RED BLOOD CELL COUNT(AUTO) 4.86 MIL/uL (4.50-6.20); RED CELL DISTRIBUTION WIDTH 12.6 % (11.0-15.5); WHITE BLOOD COUNT (AUTO) 5.4 K/uL (4.8-10.8)
[2024-07-01 06:19] LABS: ALBUMIN 2.9 g/dL (3.5-5.0); BILIRUBIN,TOTAL 0.6 mg/dL (0.2-1.0); CREATININE 0.9 mg/dL (0.5-1.3); POTASSIUM 3.6 mmol/L (3.5-5.1); TOTAL PROTEIN, SERUM 6.6 g/dL (6.0-8.3)
--- NOTE | 2024-07-01 10:05 | PN ---
[facility] PROGRESS NOTE Date Patient Seen: July 01, 2024 Time of Visit: 10:04 Supervising Physician: [Dr. Parrish] Consulting Physician: Hospitalist Outpatient Specialists: [ ] Inpatient Consults: [ ] PROBLEM LIST: Severe sepsis, POA resolved Acute hypoxic respiratory failure, POA resolved Community-acquired pneumonia, POA treated KRISTIE, uses CPAP at home Hypertension, POA Hyperlipidemia, POA Hypokalemia, POA PLAN: Continue O2 therapy Antibiotic management per primary DuoNeb q.6 Mucomyst b.i.d. Follow up culture results Treat fever aggressively Aspiration precautions Keep head of bed above 30� Pulmonary toilet INTERVAL HISTORY: [Patient is evaluated at bedside. He is saturating well on room air. Labs including CBC BNP are unremarkable. Blood, urine and sputum cultures are negative. Continues on IV antibiotics per primary. ABGs within normal limits. Patient has a history of KRISTIE and uses CPAP machine. No new respiratory concerns. Patient is cleared for discharge from pulmonary standpoint, advised to follow up outpatient for KRISTIE management, verbalized understanding.] 07/01 patient is evaluated at bedside. He is in no acute respiratory distress, saturating well on room air. Labs and vitals reviewed and within normal limits. He continues on IV antibiotics for pneumonia. Pending typhoid fever lab. Patient is stable for discharge from pulmonary standpoint. REVIEW OF SYSTEMS: 12 point ROS reviewed with patient. Pertinent positives mentioned above. Otherwise negative. PHYSICAL EXAM: GENERAL: alert, weak, awake oriented x 3, morbid obesity HEENT: EOMI, Sclera non icteric, moist mucosa NECK: Supple, no JVD, trachea midline LUNGS: Clear breath sounds bilaterally. No wheezes HEART: Regular rate and rhythm. Normal S1 and S2, without murmurs ABD: Abdomen soft, nontender. Bowel sounds present EXT: No clubbing cyanosis or edema NEURO: Alert and oriented to person, follows commands Vital Signs (last 8hr) Date Time Temp Pulse Resp B/P (MAP) Pulse Ox O2 Delivery O2 Flow Rate FiO2 07/01/24 08:00 98.6 103 19 133/94 95 Room Air 07/01/24 06:50 102 20 N/A Room Air 21 07/01/24 06:47 103 20 07/01/24 03:08 99.1 101 22 147/92 96 CPAP 07/01/24 02:41 98 17 21 LABS: Hematology Labs: Test 07/01/24 05:09 06/30/24 04:17 Range/Units White Blood Count 5.4 4.8-10.8 K/uL Red Blood Count 4.86 4.50-6.20 MIL/uL Hemoglobin 15.8 14.0-18.0 g/dL Hematocrit 45.7 42-54 % Mean Corpuscular Volume 94.0 79-99 fL Mean Corpuscular Hemoglobin 32.5 27.0-33.0 pg Mean Corpuscular Hemoglobin Concent 34.6 32.0-36.0 g/dL Red Cell Distribution Width 12.6 11.0-15.5 % Platelet Count 186 130-400 K/uL Mean Platelet Volume 10.9 H 7.5-10.5 fL Nucleated Red Blood Cells 0.0 0.0-0.19 % Immature Granulocyte % (Auto) 0.2 0-1 % Neutrophils (%) (Auto) 42.4 40.0-77.0 % Lymphocytes (%) (Auto) 44.0 21.0-51.0 % Monocytes (%) (Auto) 12.7 3.0-13.0 % Eosinophils (%) (Auto) 0.5 0.0-8.0 % Basophils (%) (Auto) 0.2 0.0-5.0 % Neutrophils # (Auto) 2.5 1.8-7.7 K/uL Lymphocytes # (Auto) 2.6 1.0-4.8 K/uL Monocytes # (Auto) 0.8 0.1-1.0 K/uL Eosinophils # (Auto) 0.03 0.00-0.70 K/uL Basophils # (Auto) 0.01 0.00-0.20 K/uL Absolute Immature Granulocyte (auto 0.01 0-1 K/uL Chemistry Labs: Test 07/01/24 05:09 Range/Units Sodium Level 138 136-145 mmol/L Potassium Level 3.6 3.5-5.1 mmol/L Chloride Level 104 101-111 mmol/L Carbon Dioxide Level 26 21-32 mmol/L Blood Urea Nitrogen 13 7-18 mg/dL Creatinine 0.9 0.5-1.3 mg/dL Glomerular Filtration Rate Calc 112 >90 mL/min Random Glucose 122 H 70-105 mg/dL Total Calcium 8.6 8.5-10.1 mg/dL Magnesium Level 2.00 1.80-2.40 mg/dL Total Bilirubin 0.6 0.2-1.0 mg/dL Aspartate Amino Transf (AST/SGOT) 45 H 10-37 U/L Alanine Aminotransferase (ALT/SGPT) 51 12-78 U/L Alkaline Phosphatase 74 50-136 U/L Total Protein 6.6 6.0-8.3 g/dL Albumin 2.9 L 3.5-5.0 g/dL DIAGNOSTICS / RADIOLOGY RESULTS: [ ] PLAN NEURO: Minimize central acting medications as possible. Maintain fall precautions, adequate lighting during the day PULMONARY: Supplemental 02 as needed. Maintain aspiration precautions at all times CARDIOVASCULAR: Follow hemodynamics. Vital signs per facility protocol GI & NUTRITION: Continue with nutritional support. Continue stool softeners and laxatives as needed. KIDNEYS & ELECTROLYTES: Strict monitoring of intake, output and overall fluid balance. Avoid nephrotoxic medications to the extent possible. Medications to be dosed according to renal function. Monitor electrolytes and replace as needed ENDOCRINE: Maintain blood glucose between 100-180 at all times. Hypoglycemia protocol in place INFECTIOUS DISEASE: Trend temperature, WBC and procalcitonin level Follow cultures, deescalate antibiotics as soon as possible. Panculture if new onset fever ONCOLOGY/HEMATOLOGY/COAGULATION: Monitor for s/s of bleeding Monitor hemoglobin, coagulation studies as needed SKIN: Pressure ulcer prevention per facility protocol Specialty mattress ORTHO/REHAB: Continue PT/OT Prophylaxis: Continue GI and DVT prophylaxis Code Status: Full Resuscitation Disposition: TBD Other: Total patient care time exceeds 35 minutes excluding all procedures. JUAN BERG July 01, 2024 10:05
[2024-07-01] MEDS ORDERED: DOXY100T2 PO (11:26)
[2024-07-01] MEDS ORDERED: LOSA-418 PO (11:26)
[2024-07-01] MEDS ORDERED: CEFP200T14 PO (11:26)
[2024-07-01] MEDS ORDERED: HYDR25TA PO (11:26)
[2024-07-01] MEDS ORDERED: POTA-187 PO (11:26)
--- NOTE | 2024-07-01 13:30 | NUR ---
DISCHARGED HOME WITH BELONGINGS AND COPY OF DISCHARGE SUMMARY
--- NOTE | 2024-07-01 14:08 | DS ---
Discharge Summary Hospital Course Summary: Mr. Dangelo is a 38-year-old male that was seen and examined on 06/26/2024. Patient is a good historian of personal health Patient stated he came to the emergency department with a chief complaint of headache. Onset was today at 9:00 a.m.. Location is occipital. Duration is on and off. Character is described as a dull ache. There was no alleviating factors. There was no aggravating factors. Patient reports associated chills. In the emergency department COVID screen is negative, flu is negative, rapid strep antigen testing is negative, CBC is unremarkable, lactic acid is 3.0, urinalysis positive for protein and RBCs 51-100 per high-powered microscopy field, chest x-ray and CT of chest does show bilateral interstitial infiltrates. CT of the head unremarkable. Emergency room physician recommended that patient be admitted with a diagnosis of pneumonia. Additionally patient had a temperature of 102.7�, heart rate 120, identified source of infection being lungs and lactic acid of 3.0 meeting clinical sepsis criteria. Patient admitted to the medical floor, placed on broad-spectrum IV antibiotics. Results of septic workup to include blood cultures, urine culture, sputum cult ure and urine culture negative. Serology test to include HIV test, influenza type a and B, urine typhus, SARS antigen and group a strep negative. Pulmonary and Infectious Disease consultation requested, recommendations were followed. CT of the abdomen was done, no acute findings. CT chest with a bilateral pulmonary infiltrates with a interstitial fibrosis. Patient is saturating normal on room air. Echocardiogram done, LVEF 55-60%, stage I diastolic dysfunction Today the patient is hemodynamically stable, saturating normal on room air, afebrile, WBC within the normal range, no cough, no chest pain, no shortness a breath, no nausea, no vomiting, no abdominal pain, tolerating diet, no melena, no hematochezia, no hematemesis, no hematuria, no dysuria. Plan for the patient to be discharged home today. Timber Skidder(s): Pulmonary and Infectious Disease Assessment/Plan: Final diagnosis Severe sepsis, POA resolved Acute hypoxic respiratory failure, POA resolved Community-acquired pneumonia, POA treated KRISTIE, uses CPAP at home Hypertension, POA Hyperlipidemia, POA Hypokalemia, POA Discharge Instructions: Patient to be discharged home today, to follow with primary care physician as an outpatient. Father is at the bedside during my visit, advised to return the patient to the emergency room if condition changes. He agreed and understood the information provided. Home Medications: Active Scripts Cefpodoxime Proxetil (Cefpodoxime Proxetil) 200 Mg Tablet, 1 TAB PO BID for 10 Days, #20 TAB 0 Refills Prov:ALFREDO LAROSE MD 07/01/24 Potassium Chloride (K-Dur/Klor-Con) 10 Meq Ertab, 1 TAB PO DAILY for 30 Days, #30 TAB 1 Refill Prov:ALFREDO LAROSE MD 07/01/24 Hydrochlorothiazide (Hydrochlorothiazide) 25 Mg Tablet, 25 MG PO DAILY for 30 Days, #30 TAB 1 Refill Prov:ALFREDO LAROSE MD 07/01/24 Losartan Potassium (Cozaar) 50 Mg Tablet, 50 MG PO BID for 30 Days, #60 TAB 1 Refill Prov:ALFREDO LAROSE MD 07/01/24 Doxycycline Hyclate (Doxycycline Hyclate) 100 Mg Tablet, 100 MG PO BID for 10 Days, #20 TAB 1 Refill Prov:ALFREDO LAROSE MD 07/01/24 Acetaminophen (Tylenol) 325 Mg Tablet, 975 MG PO a4h, #100 TAB Prov:JAIME NAVARRETE 02/27/21 Ibuprofen (Ibu) 400 Mg Tablet, 800 MG PO TID, #60 TAB Prov:JAIME NAVARRETE 02/27/21 Reported Medications Diltiazem HCl (Diltiazem 24Hr Cd) 180 Mg Cap.er.24h, 1 CAP PO DAILY for 30 Days, #30 CAP 0 Refills 06/27/24 Time spent arranging discharge: 31-60 minutes ALFREDO LAROSE MD July 01, 2024 14:08
--- NOTE | 2024-07-01 14:39 | PN ---
INFECTIOUS DISEASE PROGRESS NOTE Date of Service: July 01, 2024 SUBJECTIVE: [ ] REVIEW OF SYSTEMS CONSTITUTIONAL: Denies fever, chills, or fatigue. HEAD/FACE: No signs of trauma. EENT: Denies eye pain, blurred vision, double vision, or light sensitivity. RESPIRATORY: Denies shortness of breath, cough, wheezing CARDIOVASCULAR: Denies chest pain, palpitation, syncope GASTROINTESTINAL/ABDOMINAL: Denies abdominal pain, constipation, diarrhea, nausea or vomiting GENITOURINARY: Denies dysuria or hematuria. MUSCULOSKELETAL: Denies joint pain, tenderness, or trauma. INTEGUMENTARY: Denies rash or itchiness NEUROLOGICAL/PSYCH: Denies anxiety, depression, heat or cold intolerance. PHYSICAL EXAM EYES: Anicteric. Pupils equal and reactive. HENT: No oral thrush seen, moist Oral mucosa NECK: Supple, no JVD or thyromegaly. LUNGS: Good air entry. No rales, no rhonchi. CARDIOVASCULAR: S1, S2 regular. No murmur heard. ABDOMEN: Soft, non tender, bowel sounds present, no organomegaly CENTRAL NERVOUS SYSTEM: Awake, alert, oriented x 3. No focal deficits. SKIN: No rashes, no swelling. LYMPHATICS: No peripheral lymphadenopathy MUSCULOSKELETAL: No joint swelling, erythema or tenderness. EXTREMITIES: No cyanosis or clubbing BACK: No deformity, no pressure ulcer. GENITOURINARY: No dysuria or hematuria Vital Sign (Last 12 Hours) 07/01/24 07/01/24 07/01/24 07/01/24 02:41 03:08 06:47 06:50 Temp 99.1 Pulse 98 101 103 102 Resp 17 22 20 20 B/P (MAP) 147/92 Pulse Ox 96 O2 Delivery CPAP N/A Room Air FiO2 21 21 07/01/24 07/01/24 07/01/24 07/01/24 08:00 11:19 11:19 12:00 Temp 98.6 99.1 Pulse 103 98 96 Resp 19 20 20 20 B/P (MAP) 133/94 150/102 Pulse Ox 95 96 O2 Delivery Room Air N/A Room Air Room Air FiO2 21 Intake & Output (last 24hrs) 06/30/24 06/30/24 07/01/24 15:00 23:00 07:00 Intake Total 1225.0 ml Output Total 200 ml 1200 ml Balance -200 ml 25.0 ml LABS: Laboratory: Test 07/01/24 07:56 07/01/24 05:09 06/30/24 04:17 Range/Units Vancomycin Level Trough 13.4 # 10.0-20.0 UG/ML White Blood Count 5.4 4.8-10.8 K/uL Red Blood Count 4.86 4.50-6.20 MIL/uL Hemoglobin 15.8 14.0-18.0 g/dL Hematocrit 45.7 42-54 % Mean Corpuscular Volume 94.0 79-99 fL Mean Corpuscular Hemoglobin 32.5 27.0-33.0 pg Mean Corpuscular Hemoglobin Concent 34.6 32.0-36.0 g/dL Red Cell Distribution Width 12.6 11.0-15.5 % Platelet Count 186 130-400 K/uL Mean Platelet Volume 10.9 H 7.5-10.5 fL Nucleated Red Blood Cells 0.0 0.0-0.19 % Sodium Level 138 136-145 mmol/L Potassium Level 3.6 3.5-5.1 mmol/L Chloride Level 104 101-111 mmol/L Carbon Dioxide Level 26 21-32 mmol/L Blood Urea Nitrogen 13 7-18 mg/dL Creatinine 0.9 0.5-1.3 mg/dL Glomerular Filtration Rate Calc 112 >90 mL/min Random Glucose 122 H 70-105 mg/dL Total Calcium 8.6 8.5-10.1 mg/dL Magnesium Level 2.00 1.80-2.40 mg/dL Total Bilirubin 0.6 0.2-1.0 mg/dL Aspartate Amino Transf (AST/SGOT) 45 H 10-37 U/L Alanine Aminotransferase (ALT/SGPT) 51 12-78 U/L Alkaline Phosphatase 74 50-136 U/L Total Protein 6.6 6.0-8.3 g/dL Albumin 2.9 L 3.5-5.0 g/dL Immature Granulocyte % (Auto) 0.2 0-1 % Neutrophils (%) (Auto) 42.4 40.0-77.0 % Lymphocytes (%) (Auto) 44.0 21.0-51.0 % Monocytes (%) (Auto) 12.7 3.0-13.0 % Eosinophils (%) (Auto) 0.5 0.0-8.0 % Basophils (%) (Auto) 0.2 0.0-5.0 % Neutrophils # (Auto) 2.5 1.8-7.7 K/uL Lymphocytes # (Auto) 2.6 1.0-4.8 K/uL Monocytes # (Auto) 0.8 0.1-1.0 K/uL Eosinophils # (Auto) 0.03 0.00-0.70 K/uL Basophils # (Auto) 0.01 0.00-0.20 K/uL Absolute Immature Granulocyte (auto 0.01 0-1 K/uL DIAGNOSTICS / RADIOLOGY: [ ] ASSESSMENT: Multifocal pneumonia. Leukocytosis. Sepsis. Morbid obesity. PLAN: Patient received Zosyn IV and being discharged on Vantin and doxycycline today. This case was reviewed and discussed with my supervising physician and the above assessment and plan was formulated and agreed upon. ATTESTATION BY PHYSICIAN I have seen and examined the patient. I reviewed the documentation, medical decision making, and treatment plan as noted by the mid-level provider above. I agree with the findings and plan of care. MALCOLM BEE MD, [facility] July 01, 2024 14:39
[2024-07-01 23:09] LABS: MYCOPLASMA AB IGM <770 U/mL (0-769)
[2024-07-02 00:09] LABS: DENGUE IGG ANTIBODY <1.00 ISR (<1.65); DENGUE IGM ANTIBODY <1.00 ISR (<1.65)
--- NOTE | 2024-07-03 11:36 | NUR ---
Transitional Phone Call Spoke with Patti Dangelo, Mother [phone], states patient, "is doing a lot better." States patient is taking medications as per instructions; no questions or concerns. States the follow up appointment with PCP - Dr. Brooks is on 07/06/2024 at 1430. No questions or concerns at this time.
== END 2024-07-01 14:00 | disposition home or self-care (01) | DRG 720 ==
LOC: EDH 20:47 → 4CH 20:48
PROVIDERS: ADMIT Internal Medicine; ATTEND Internal Medicine
PROC: 5A09357 Assistance with Respiratory Ventilation, Less than 24 Consecutive Hours, Continuous Positive Airway Pressure (ICD-10-PCS; principal; 2024-06-27)
PROC: 5A09357 Assistance with Respiratory Ventilation, Less than 24 Consecutive Hours, Continuous Positive Airway Pressure (ICD-10-PCS; 2024-06-28)
PROC: 5A09357 Assistance with Respiratory Ventilation, Less than 24 Consecutive Hours, Continuous Positive Airway Pressure (ICD-10-PCS; 2024-06-29)
PROC: 5A09357 Assistance with Respiratory Ventilation, Less than 24 Consecutive Hours, Continuous Positive Airway Pressure (ICD-10-PCS; 2024-06-30)
PROC: 5A09357 Assistance with Respiratory Ventilation, Less than 24 Consecutive Hours, Continuous Positive Airway Pressure (ICD-10-PCS; 2024-07-01)
DX: A41.9 Sepsis, unspecified organism (principal); J96.01 Acute respiratory failure with hypoxia; E87.20 Acidosis, unspecified; J18.9 Pneumonia, unspecified organism; G47.33 Obstructive sleep apnea (adult) (pediatric); I16.0 Hypertensive urgency; E87.6 Hypokalemia; R65.20 Severe sepsis without septic shock; Z79.899 Other long term (current) drug therapy; I10 Essential (primary) hypertension; E78.5 Hyperlipidemia, unspecified; E66.01 Morbid (severe) obesity due to excess calories; Z68.41 Body mass index [BMI] 40.0-44.9, adult; Z20.822 Contact with and (suspected) exposure to COVID-19
CPT/HCPCS: 36415; 36600; 70450; 71045; 71260; 74176; 80048; 80053; 80202; 80305; 81001; 82140; 82550; 82803; 83605; 83735; 83880; 84100; 84145; 84484; 85025; 85027; 86701; 86738; 86757; 87040; 87071; 87086; 87205; 87390; 87426; 87449; 87804; 87880; 93005; 93306; 93356; 94640; 94660; 94664; 99285; G0378; J0360; J0456; J0696; J1650; J2543; J2919; J3475; J7030; J7120; Q9967; J3370